=== PATIENT | male | born 1935 | race Caucasian/White ===

== ENCOUNTER → 2016-10-20 | Outpatient (CLI) | payer OTHER, MEDICARE ==
--- NOTE | 2016-10-20 19:48 | DX ---
Sacroiliac joints - 3 views dated October 20, 2016 Indication: Chronic right sacroiliac joint pain. Comparison: CT of the abdomen and pelvis dated September 12, 2016 and sacroiliac views from April 04. 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 No left-sided ankylosis. Minimal productive arthropath y of the left sacroiliac joint is unchanged. Minimal degenerative arthropathy of the pubic symphysis and exuberant osteophytes at the lumbosacral junction are unchanged. Impression: 1. 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 2. No fracture or bone lesion.
== END ==
LOC: CIMAGING 11:09
PROVIDERS: ATTEND Family Medicine
DX: M46.1 Sacroiliitis, not elsewhere classified (principal)
CPT/HCPCS: 72200-PO

== ENCOUNTER 2017-02-24 16:02 | Observation (INO) | payer OTHER, MEDICARE ==
[2017-02-24] MEDS ORDERED: NITROGLYCERIN 0.4 MG BTL SL PRN (16:09)
[2017-02-24] MEDS ORDERED: ASPIRIN 81 MG CHEWABLE TAB PO ONE (16:09)
[2017-02-24] MEDS ORDERED: NS 1,000 ML IV ONE (16:09)
--- NOTE | 2017-02-24 16:09 | EDPHY ---
H & P Stated Complaint: L cp pain, dizzy, L arm pain since this am HPI/ROS: HPI CHIEF COMPLAINT: Chest pain HISTORY OF PRESENT ILLNESS: This patient very pleasant 82-year-old male significant past medical history for coronary artery disease with a stent, diabetes, AFib, pacemaker, COPD with an oxygen requirement of 3 L around the clock, CPAP at night, presents emergency room with left-sided chest discomfort that radiates down his left arm. Patient tells me this is described as a pressure in dull ache left anterior chest radiates down the left arm. This started around 10 this morning it has been persistent all day was unable to get comfortable unable to sleep decided come to the emergency room. He also endorses shortness of breath. Denies pleuritic pain. Denies focal weakness numbness or tingling. Denies nausea. Denies diaphoresis. Past Medical History: Coronary artery disease with stent, diabetes, AFib, pacemaker, COPD with 3 L nasal cannula 24 hours day CPAP at night Past Surgical History: PTCA cardiac stent, abdominal stent Social History: Denies daily use drugs alcohol tobacco products Family History: Noncontributory ROS REVIEW OF SYSTEMS: A comprehensive 10 point review of systems is otherwise negative aside from elements mentioned in the history of present illness. Exam Constitutional appears well nontoxic, triage nursing summary reviewed, vital signs reviewed, awake/alert. Eyes normal conjunctivae and sclera, EOMI, PERRLA. HENT normal inspection, atraumatic, moist mucus membranes, no epistaxis, neck supple/ no meningismus, no raccoon eyes. Respiratory clear to auscultation bilaterally, normal breath sounds, no respiratory distress, no wheezing. Cardiovascular left chest wall: Pacer site present, minimal redness, no fluctuance no abscess. rate normal, regular rhythm, no murmur, no edema, distal pulses normal. Gastrointestinal soft, non-tender, no rebound, no guarding, normal bowel sounds, no distension, no pulsatile mass. Genitourinary no CVA tenderness. Musculoskeletal no midline vertebral tenderness, full range of motion, no calf swelling, no tenderness of extremities, no meningismus, good pulses, neurovascularly intact. Skin pink, warm, & dry, no rash, skin atraumatic. Neurologic awake, alert and oriented x 3, AAOx3, moves all 4 extremities equally, motor intact, sensory intact, CN II-XII intact, normal cerebellar, normal vision, normal speech. Psychiatric normal mood/affect. Heme/Lymph/Immune no lymphadenopathy. Differential diagnosis includes but is not limited to: ACS, atypical chest pain , pneumothorax, pneumonia, pulmonary embolism, aortic dissection, congestive heart failure, tumor, musculoskeletal pain, esophageal pain, GERD, peptic ulcer disease, pancreatitis Medical Decision Making: Plan for this patient IV establishment full cardiac rehab nurse, EKG to rule out acute coronary syndrome, chest x-ray, full-dose aspirin , nitroglycerin to see if this improves his chest discomfort, check D-dimer, check troponin. Close observation re-evaluation. Re-evaluation: EKG interpretation by me on record in [employer] Interactive system. Impression time of EKG 1614: VENTRICULARLY PACED RHYTHM RATE OF 70. When I compare this patient's EKG to old EKG dated 12/20/2014 unchanged in appearance. Ventricularly paced. 1625: states the patient is taking Keflex for a left chest pacer chest wall site infection. 1715: Patient is chest pain-free after nitroglycerin and morphine. The nitroglycerin did improve his chest discomfort. EKG is a ventricularly paced rhythm otherwise unremarkable. Negative troponin. Chest x-ray shows mild pulmonary edema mild CHF. Patient be admitted to the hospitalist service for further evaluation and cardiac rule out. Dr. Nelson has accepted. Patient is hemodynamically stable no acute distress resting comfortably at this time. Source: Patient - Personal History Current Tetanus/Diphtheria Vaccine: Unsure Current Tetanus Diphtheria and Acellular Pertussis (TDAP): Unsure Tetanus Vaccine Date: 2009 - Medical/Surgical History Hx Asthma: No Hx Chronic Respiratory Disease: No Hx Diabetes: Yes Hx Cardiac Disease: No Hx Renal Disease: No Hx Cirrhosis: No Hx Alcoholism: No Hx HIV/AIDS: No Hx Splenectomy or Spleen Trauma: No Other PMH: PMH:CAD,AFIB,HTN,PACEMAKER, Sleep apnea. PSH: PACER,BACK,EYE,ORTHO, APPY - Social History Smoking Status: Former smoker Constitutional: Initial Vital Signs Temperature (C) 37.0 C 02/24/17 16:05 Heart Rate 75 02/24/17 16:05 Respiratory Rate 20 02/24/17 16:05 Blood Pressure 136/76 H 02/24/17 16:05 O2 Sat (%) 98 02/24/17 16:05 O2 Delivery Mode Nasal Cannula O2 (L/minute) 4 Allergies/Adverse Reactions: tetracycline [Tetracycline] Allergy (Intermediate, Verified 09/12/16 17:59) Hives Medical Decision Making - Diagnostics Imaging Results: Imaging Impressions Chest X-Ray 02/24/17 16:09 Impression: 1. Suspect low-grade congestive failure without pulmonary edema. 2. Basilar atelectasis is seen. 3. Peribronchial cuffing may reflect airways disease. - Data Points Laboratory Results: Laboratory Results 02/24/17 16:22 02/24/17 16:22 02/24/17 02/24/17 02/24/17 16:22 16:22 16:22 WBC 5.02 10^3/uL 10^3/uL (3.80-9.50) RBC 4.26 10^6/uL L 10^6/uL (4.40-6.38) Hgb 13.4 g/dL L g/dL (13.7-17.5) Hct 40.1 % % (40.0-51.0) MCV 94.1 fL fL (81.5-99.8) MCH 31.5 pg pg (27.9-34.1) MCHC 33.4 g/dL g/dL (32.4-36.7) RDW 13.2 % % (11.5-15.2) Plt Count 213 10^3/uL 10^3/uL (150-400) MPV 10.2 fL fL (8.7-11.7) Neut % (Auto) 58.1 % % (39.3-74.2) Lymph % (Auto) 32.3 % % (15.0-45.0) [place] % (Auto) 6.8 % % (4.5-13.0) Eos % (Auto) 2.4 % % (0.6-7.6) Baso % (Auto) 0.2 % L % (0.3-1.7) Nucleat RBC Rel Count 0.0 % % (0.0-0.2) Absolute Neuts (auto) 2.92 10^3/uL 10^3/uL (1.70-6.50) Absolute Lymphs (auto) 1.62 10^3/uL 10^3/uL (1.00-3.00) Absolute Monos (auto) 0.34 10^3/uL 10^3/uL (0.30-0.80) Absolute Eos (auto) 0.12 10^3/uL 10^3/uL (0.03-0.40) Absolute Basos (auto) 0.01 10^3/uL L 10^3/uL (0.02-0.10) Absolute Nucleated RBC 0.00 10^3/uL 10^3/uL (0-0.01) Immature Gran % 0.2 % % (0.0-1.1) Immature Gran # 0.01 10^3/uL 10^3/uL (0.00-0.10) PT 22.7 SEC H SEC (12.0-15.0) INR 1.99 H (0.83-1.16) APTT 26.9 SEC SEC (23.0-38.0) D-Dimer 0.32 ug/mLFEU ug/mLFEU (0.00-0.50) Sodium 134 mEq/L mEq/L (134-144) Potassium 4.7 mEq/L mEq/L (3.5-5.2) Chloride 105 mEq/L mEq/L (97-110) Carbon Dioxide 21 mEq/l L mEq/l (22-31) Anion Gap 8 mEq/L mEq/L (8-16) BUN 16 mg/dL mg/dL (7-23) Creatinine 0.6 mg/dL L mg/dL (0.7-1.3) Estimated GFR > 60 Glucose 129 mg/dL H mg/dL (70-100) Calcium 10.5 mg/dL H mg/dL (8.5-10.4) Magnesium 1.6 mg/dL mg/dL (1.6-2.3) Total Bilirubin 0.6 mg/dL mg/dL (0.1-1.4) Conjugated Bilirubin 0.4 mg/dL mg/dL (0.0-0.5) Unconjugated Bilirubin 0.2 mg/dL mg/dL (0.0-1.1) AST 30 IU/L IU/L (17-59) ALT 32 IU/L IU/L (21-72) Alkaline Phosphatase 89 IU/L IU/L (38-126) Creatine Kinase 141 IU/L IU/L (0-224) CK-MB (CK-2) Fraction 3.78 ng/mL H ng/mL (0-3.19) CK-MB (CK-2) % 2.7 % % (0.0-4.0) Creatine Kinase Interp NEGATIVE (NEGATIVE) Troponin I < 0.012 ng/mL ng/mL (0-0.034) NT-Pro-B Natriuret Pep 649 pg/mL H pg/mL (0-450) Total Protein 6.8 g/dL g/dL (6.3-8.2) Albumin 3.7 g/dL g/dL (3.5-5.0) Lipase 24.0 IU/L IU/L (23-300) Medications Given: Discontinued Medications Aspirin (Aspirin) 324 mg PO EDNOW ONE Stop: 02/24/17 16:10 Last Admin: 02/24/17 16:24 Dose: 324 mg Sodium Chloride (Ns) 1,000 mls @ 0 mls/hr IV ONCE ONE; Wide Open PRN Reason: Protocol Stop: 02/24/17 16:10 Last Admin: 02/24/17 16:27 Dose: 1,000 mls Nitroglycerin (Nitrostat) 0.4 mg SL EDNOW ONE Stop: 02/24/17 16:25 Last Admin: 02/24/17 16:27 Dose: 0.4 mg Departure - Departure Disposition: [facility] Inpatient Acute Clinical Impression: Chest pain Condition: Good Referrals: Pa Issa MD [Primary Care Provider] - As per Instructions
--- NOTE | 2017-02-24 16:17 | CPEKG ---
Heart Rate: 70 RR Interval: 857 QRSD Interval: 164 QT Interval: 436 QTC Interval: 471 QRS [place]: -88 T Wave [place]: 85 EKG Severity - ABNORMAL ECG - EKG Impression: AFIB/FLUTTER AND VENTRICULAR-PACED RHYTHM Electronically Signed By: Espinoza Howell 24-Feb-2017 22:05:45
[2017-02-24] MEDS ORDERED: NITROGLYCERIN 0.4 MG BTL SL ONE (16:24)
[2017-02-24 16:28] LABS: % IMMATURE GRANULYOCYTES 0.2 % (0.0-1.1); ABSOLUTE IMMATURE GRANULOCYTES 0.01 10^3/uL (0.00-0.10); ADD DIFF? NO; ADD MORPH? NO; ADD SCAN? NO; ATYPICAL LYMPHOCYTE FLAG 10 (0-99); FRAGMENT RBC FLAG 0 (0-99); HEMATOCRIT 40.1 % (40.0-51.0); HEMOGLOBIN 13.4 g/dL (13.7-17.5); LEFT SHIFT FLG 0 (0-99); LIPEMIA HEMOLYSIS FLAG 80 (0-99); MEAN CELL HEMOGLOBIN 31.5 pg (27.9-34.1); MEAN CELL HEMOGLOBIN CONCENTR. 33.4 g/dL (32.4-36.7); MEAN CELL VOLUME 94.1 fL (81.5-99.8); MEAN PLATELET VOLUME 10.2 fL (8.7-11.7); PLATELET CLUMPS FLAG 10 (0-99); PLATELET COUNT 213 10^3/uL (150-400); RED BLOOD CELL COUNT 4.26 10^6/uL (4.40-6.38); RED CELL DISTRIBUTION WIDTH 13.2 % (11.5-15.2)
[2017-02-24 16:39] LABS: INR 1.99 (0.83-1.16); PROTIME(PATIENT) 22.7 SEC (12.0-15.0)
[2017-02-24 16:40] LABS: APTT 26.9 SEC (23.0-38.0)
[2017-02-24 16:43] LABS: ALANINE AMINOTRANSFERASE 32 IU/L (21-72); ALBUMIN 3.7 g/dL (3.5-5.0); ALKALINE PHOSPHATASE 89 IU/L (38-126); ANION GAP 8 mEq/L (8-16); ASPARTATE AMINOTRANSFERASE 30 IU/L (17-59); BILIRUBIN,TOTAL 0.6 mg/dL (0.1-1.4); BILIRUBIN-CONJUGATED 0.4 mg/dL (0.0-0.5); BILIRUBIN-UNCONJUGATED 0.2 mg/dL (0.0-1.1); CALCIUM 10.5 mg/dL (8.5-10.4); CARBON DIOXIDE 21 mEq/l (22-31); CHLORIDE 105 mEq/L (97-110); CREATININE 0.6 mg/dL (0.7-1.3); GLOMERULAR FILTRATION RATE > 60; GLUCOSE 129 mg/dL (70-100); MAGNESIUM 1.6 mg/dL (1.6-2.3); POTASSIUM 4.7 mEq/L (3.5-5.2); SODIUM 134 mEq/L (134-144); TOTAL PROTEIN 6.8 g/dL (6.3-8.2)
[2017-02-24] MEDS ORDERED: ONDANSETRON 4 MG/2 ML VIAL IVP ONE (16:49)
[2017-02-24 16:55] LABS: TROPONIN I < 0.012 ng/mL (0-0.034)
[2017-02-24 17:00] LABS: CK-MB INTERPRETATION NEGATIVE (NEGATIVE); CREATINE KINASE-MB FRACTION 3.78 ng/mL (0-3.19)
[2017-02-24] MEDS ORDERED: WARFARIN SODIUM 5 MG TAB PO SCH (18:30)
[2017-02-24] MEDS ORDERED: ONDANSETRON DISINTEGRATING 4 MG TAB PO PRN (18:35)
[2017-02-24] MEDS ORDERED: ACETAMINOPHEN 325 MG TAB PO PRN (18:35)
[2017-02-24] MEDS ORDERED: ONDANSETRON 4 MG/2 ML VIAL IVP PRN (18:35)
--- NOTE | 2017-02-24 19:38 | GHP ---
[f rep st] HISTORY AND PHYSICAL DATE OF ADMISSION: 02/24/2017 HISTORY OF PRESENT ILLNESS: The patient is an 82-year-old gentleman with a history of atrial fibril lation, coronary disease, low back pain, diabetes. He presents with chest pain. He had a recent pa cemaker generator change about a month ago with a subsequent soft tissue infection, for which he has been on Keflex. This morning, he developed pain under his left breast, and his left arm ached. He was not diaphoretic. He was short of breath. He lay down. The pain largely resolved. He spent m uch of the day in bed. He does not really exert himself very often, so he has no classic exertional symptoms. He has chronic lower extremity edema, which he believes is unchanged. He has COPD, for which he wears oxygen, and that is unchanged. He is not breathless. He does not have sputum, hemop tysis, or weight gain. He does take warfarin for atrial fibrillation. He currently has a therapeut ic INR. REVIEW OF SYSTEMS: Complete 10-point review of systems conducted, negative except as noted in the H PI. PAST MEDICAL HISTORY: 1. Coronary artery disease. He has had stents in the past. He had a stress test here in March, showing no evidence of ischemia or infarction. 2. Multiple low back surgeries. 3. Pacemaker placement. 4. Recent skin infection. 5. Hypertension. 6. Type 2 diabetes. 7. Reflux. 8. Esophageal dysmotility. PAST SURGICAL HISTORY: He has had 5 eye surgeries and an appendectomy. ALLERGIES: Tetracycline. HOME MEDICATIONS: Glargine 25 at night, metformin, aspirin, Keflex, vitamin D3, Plavix, B12, digoxi n, duloxetine, gabapentin, lispro, levothyroxine, methadone, metoprolol, pantoprazole, tamsulosin, w arfarin. 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 He lives in [facility] or [facility]. Quit smoking remotely. Minimal alcohol. FAMILY HISTORY: Parents . PHYSICAL EXAMINATION: VITAL SIGNS: Temp 36.4, blood pressure 113/57, pulse 73, breathing 14 times a minute, 96% on 4 L. GENERAL: No acute distress. HEENT: Sclerae anicteric. Oropharynx clear. Mucous membranes moist. NECK: Supple, without lymphadenopathy or JVD. LUNGS: Clear to auscultati on bilaterally. HEART: S1, S2. ABDOMEN: Soft, nontender, nondistended. CHEST: His left chest s hows some erythema without fluctuance or lymphangitic spread. There is no axillary lymphadenopathy. LOWER EXTREMITIES: 1+ edema bilaterally. Calves are nontender. SKIN: Without rash. NEUROLOGIC : Nonfocal. LABS: White count 5, hematocrit 40, platelets 213,000. INR is 1.99. Sodium 134, potassium 4.7, ch loride 105, bicarb 21, BUN 8, creatinine 0.6, glucose 129. Calcium is 10.5, slightly high. LFTs no rmal. Troponin less than 0.012. BNP is 649. Chest x-ray, interpreted by me, shows a pacer in place. No acute cardiopulmonary disease. EKG, interpreted by me, shows paced rhythm. I have discussed the case with Dr. Espinoza Howell in the emergency department. ASSESSMENT AND PLAN: This is a pleasant 82-year-old gentleman with coronary disease, recent generat or change with subsequent infection, who presents with chest pain. 1. Chest pain. His EKG has been uninterpretable. He has a negative cardiac enzyme. His story meza s not sound classic for angina, but his risk factors and the presence of coronary disease are noted. I will cycle troponins, follow him on telemetry, check an EKG in the morning. He is on appropriat e medical management, including aspirin, statin, beta gustavo, and dual antiplatelet therapy. I won hilda if his pacemaker site is having a role in this. I will perform ultrasound. 2. Pacer site infection. This looks pretty good, actually. His sole leather cutting machine operator is someone at [facility]. It used to be Kyree Galloway. He really cannot name his sole leather cutting machine operator. He has seen a PA at [facility]. Uncertain who that is. I will check an ultrasound and continue his Keflex. 3. Diabetes. Continue his medication. 4. History of neuropathy. The patient describes burning on the bottom of his feet. It sounds an a wful lot like a diabetic neuropathy. I discussed starting Neurontin with him, and he does have some interest. I will start low-dose Neurontin and titrate up. 5. Prophylaxis. Therapeutically anticoagulated. 6. Neurontin addendum: The patient is already on Neurontin. 7. Disposition: Observation status. 8. Addendum to chest pain: Pulmonary embolism considered. Therapeutic INR on warfarin. /[id number]/MODL
[2017-02-24] MEDS: CEPHALEXIN 500 MG CAP PO SCH (20:49)
[2017-02-24] MEDS: METOPROLOL SUCCINATE XR 25 MG TAB PO SCH (20:49)
[2017-02-24] MEDS: GABAPENTIN 300 MG CAP PO SCH (20:50)
[2017-02-24] MEDS: METHADONE HCL 5 MG TAB PO SCH (20:50)
[2017-02-24] MEDS: PANTOPRAZOLE SODIUM 40 MG TAB PO SCH (20:50)
[2017-02-24] MEDS ORDERED: INSULIN GLARGINE 100 UNITS/ML SYRINGE SC SCH (21:00)
[2017-02-25] MEDS ORDERED: LEVOTHYROXINE 150 MCG TAB PO SCH (06:00)
[2017-02-25] MEDS: CEPHALEXIN 500 MG CAP PO SCH ×3 (06:02→16:02)
[2017-02-25 07:53] VITALS: RESP 19
[2017-02-25] MEDS ORDERED: ASPIRIN EC 81 MG TAB PO SCH (09:00)
[2017-02-25] MEDS ORDERED: DULoxetine 30 MG CAP PO SCH (09:00)
[2017-02-25] MEDS ORDERED: DIGOXIN 125 MCG TAB PO SCH (09:00)
[2017-02-25] MEDS ORDERED: CHOLECALCIFEROL VIT D3 1,000 UNITS TAB PO SCH (09:00)
[2017-02-25] MEDS ORDERED: TAMSULOSIN HCL 0.4 MG CAP PO SCH (09:00)
[2017-02-25] MEDS ORDERED: CLOPIDOGREL BISULFATE 75 MG TAB PO SCH (09:00)
[2017-02-25] MEDS: PANTOPRAZOLE SODIUM 40 MG TAB PO SCH (09:41)
[2017-02-25] MEDS: METHADONE HCL 5 MG TAB PO SCH (09:42)
[2017-02-25] MEDS: METOPROLOL SUCCINATE XR 25 MG TAB PO SCH (09:42)
[2017-02-25] MEDS: GABAPENTIN 300 MG CAP PO SCH ×2 (09:42→11:56)
[2017-02-25] MEDS ORDERED: REGADENOSON 0.4 MG/5 ML SYR IVP ONE (10:12)
--- NOTE | 2017-02-25 11:15 | CPR ---
[f rep st] NONINVASIVE CARDIAC PROCEDURE REPORT PROCEDURE PERFORMED: Lexiscan injection and Lexiscan MPI study. INDICATION FOR PROCEDURE: Chest pain with paced rhythm. PRE: After obtaining informed consent, ensuring the patient's n.p.o. status of caffeine for greater than 12 hours, the patient was placed on 12-lead electrocardiogram. Initial EKG appears to have underlying rhythm of atrial fibrillation with ventricular paced beats. No ectopy, no significant pauses. Patient denies any chest pain, shortness of breath, or symptoms suggestive of ischemia. Initial blood pressure 120/76, saturation 91%, on 2 L nasal cannula. INJECTION: Patient was given Lexiscan slow IV push, followed by nuclear isotope. The patient reported some mild shortness of breath with injection. No significant EKG changes. Blood pressure remained stable. Symptoms were self limited. The patient was given caffeinated beverage. Reporting symptoms soon subsided. After 5 minutes, he was asymptomatic. Vital signs remained stable. No significant EKG changes. IMPRESSION: 82-year-old male admitted for chest pressure with underlying ventricular paced rhythm, being evaluated for cardiac ischemia. Patient did report mild shortness of breath post the Lexiscan, which resolved within 5 minutes and caffeinated beverage, post injection. Vital signs remained stable. No arrhythmias. No significant changes in EKG. The patient will finish stress MPI imaging in nuclear medicine at this time. /[id number]/MODL MTDD
[2017-02-25 11:53] VITALS: BP 155/88; PULSE 63; TEMP 98; O2SAT 96
[2017-02-25] MEDS: INSULIN LISPRO 100 UNIT/ML SC SCH ×2 (11:55→12:04)
--- NOTE | 2017-02-25 14:23 | PDDCSUM ---
Discharge Summary Discharge Summary: Dates of service 02/24-02/25/17 Discharge dx: # chest pain # recent PPM placement with post op infection # cad # DM # a fib # Dm related neuropathy # nocturia # daytime somnolence Consultations: none Procedures performed: nuc stress test, chest us Hospital course by problem # chest pain: with hx of CAD, w/u negative including nuc stress test, trops neg x 3, ech without ischemic changes, pain has resolved and not recurred. Perhaps it was msk versus GI related. f/u with cards as scheduled this week # ppm with post op wound infection: being treated with keflex and appears to be improving, small area of redness without purulence or fluctuance, chest ct w/o abscess. complete course of abx and f/u as scheduled. # CAD: as above, continue op meds # a fib: ecg personally reviewed and notable for afib/flutter with v-paced rhythm, continue op meds and ac with warfarin # dm with diabetic neuropathy--continue op meds, glucose well controlled, holding metormin until the 16th given stress today, continue neurontin # nocturia: sounds as if he is getting up 5-6 times at night to urinate, leading him to be very somnolent during the day, recommend he f/u with urology, already on tamsulosin # daytime somnolence: is compliant with cpap, issue as above likely contributing # denise: continue cpap Dc home f/u pcp. urology. cardiology. > 35 min spent in dc of patient more than half in face to face counseling of patient and his regarding f/u care plans
[2017-02-25] MEDS ORDERED: WARFARIN SODIUM 7.5 MG TAB PO SCH (16:00)
[2017-02-26] MEDS ORDERED: WARFARIN SODIUM 5 MG TAB PO SCH (16:00)
[2017-03-12] MEDS ORDERED: CYANO/VITAMIN B12 1000 MCG/ML VIAL IM SCH (18:30)
== END 2017-02-25 16:11 | disposition home or self-care (01) ==
LOC: INTOOBSV 17:15 → F2W 18:02
PROVIDERS: ADMIT Internal Medicine; ATTEND Internal Medicine
DX: R07.9 Chest pain, unspecified (principal); I25.10 Atherosclerotic heart disease of native coronary artery without angina pectoris; E11.40 Type 2 diabetes mellitus with diabetic neuropathy, unspecified; T81.4XXD Infection following a procedure, subsequent encounter; Y71.2 Prosthetic and other implants, materials and accessory cardiovascular devices associated with adverse incidents; J44.9 Chronic obstructive pulmonary disease, unspecified; I48.91 Unspecified atrial fibrillation; R35.1 Nocturia; G47.33 Obstructive sleep apnea (adult) (pediatric); Z95.0 Presence of cardiac pacemaker; Z95.5 Presence of coronary angioplasty implant and graft
CPT/HCPCS: 71010; 76604; 78452; 93005; 93017; 96361; 96374; 96375; 97161; 99285; A9500; G0378; G8978; G8979; G8980; J1815; J2405; J2785

== ENCOUNTER 2017-08-02 21:10 | Inpatient (IN) | payer OTHER, MEDICARE ==
--- NOTE | 2017-08-02 21:22 | CPEKG ---
Heart Rate: 80 RR Interval: 750 P-R Interval: 140 QRSD Interval: 192 QT Interval: 444 QTC Interval: 513 P [place]: -78 QRS [place]: 268 T Wave [place]: 89 EKG Severity - ABNORMAL ECG - EKG Impression: VENTRICULAR-PACED COMPLEXES EKG Impression: NONSPECIFIC IVCD WITH LAD Electronically Signed By: Shanta Jarvis 02-Aug-2017 22:35:19
[2017-08-02 21:24] LABS: % IMMATURE GRANULYOCYTES 0.2 % (0.0-1.1); ABSOLUTE IMMATURE GRANULOCYTES 0.01 10^3/uL (0.00-0.10); ADD DIFF? NO; ADD MORPH? NO; ADD SCAN? NO; ATYPICAL LYMPHOCYTE FLAG 0 (0-99); FRAGMENT RBC FLAG 0 (0-99); HEMATOCRIT 42.8 % (40.0-51.0); HEMOGLOBIN 14.8 g/dL (13.7-17.5); LEFT SHIFT FLG 0 (0-99); LIPEMIA HEMOLYSIS FLAG 90 (0-99); MEAN CELL HEMOGLOBIN 32.8 pg (27.9-34.1); MEAN CELL HEMOGLOBIN CONCENTR. 34.6 g/dL (32.4-36.7); MEAN CELL VOLUME 94.9 fL (81.5-99.8); MEAN PLATELET VOLUME 10.1 fL (8.7-11.7); PLATELET CLUMPS FLAG 10 (0-99); PLATELET COUNT 202 10^3/uL (150-400); RED BLOOD CELL COUNT 4.51 10^6/uL (4.40-6.38); RED CELL DISTRIBUTION WIDTH 13.2 % (11.5-15.2)
--- NOTE | 2017-08-02 21:31 | EDPHY ---
H & P HPI/ROS: CHIEF COMPLAINT: Chest pain HISTORY OF PRESENT ILLNESS: Patient is an 82-year-old male with a history of coronary artery disease with previous stent placement in the beginning of 2015 who presents emergency department with chest pain starting at 4:00 p.m. The patient was at rest when he developed chest pain. Is central. It does not radiate. It was initially 8 out 10 per paramedics. They treated him with nitroglycerin with no relief. Patient was given aspirin EN route. Patient states he continues to have pain but is mild. He had mild shortness of breath. No cough. No fevers or chills. No nausea, vomiting or diaphoresis. No leg pain. REVIEW OF SYSTEMS: My complete review of systems is negative except as mentioned in the HPI. Past Medical/Surgical History: Includes coronary artery disease Smoking Status: Former smoker Physical Exam: Vitals noted Constitutional: Initial Vital Signs Temperature (C) 36.8 C 08/02/17 21:17 Heart Rate 72 08/02/17 21: Respiratory Rate 18 08/02/17 21:17 Blood Pressure 132/75 H 08/02/17 21:17 O2 Sat (%) 99 08/02/17 21:17 O2 Delivery Mode Nasal Cannula O2 (L/minute) 3 Allergies/Adverse Reactions: tetracycline [Tetracycline] Allergy (Intermediate, Verified 09/12/16 17:59) Hives Home Medications: Medication Instructions Recorded Aspirin EC [Aspirin EC 81 mg (*)] 81 mg PO DAILY 02/24/17 Cephalexin [Keflex (*)] 500 mg PO QID 02/24/17 Cholecalciferol Vit D3 [Vitamin D3 4,000 units PO DAILY 02/24/17 (*)] Clopidogrel Bisulfate [Plavix (*)] 75 mg PO DAILY 02/24/17 Cyanocobalamin [Vitamin B12 1,000 mcg IM Q30D 02/24/17 1000MCG/ML (*)] DULoxetine [Cymbalta 30 MG (*)] 30 mg PO DAILY 02/24/17 Digoxin [Lanoxin 125 mcg (RX)] 125 mcg PO DAILY 02/24/17 Gabapentin [Neurontin 300 MG (*)] 300 mg PO TID@09,12,21 02/24/17 Insulin Glargine [Lantus 100 25 units SC HS 02/24/17 UNITS/ML (*)] Insulin Lispro [Humalog] 15 unit SQ TIDMEAL 02/24/17 Levothyroxine [Synthroid 150 mcg 150 mcg PO DAILY06 02/24/17 (*)] Methadone HCl [Methadone 5 mg (*)] 5 mg PO BID 02/24/17 Metoprolol Succinate Xr [Toprol Xl 25 mg PO BID 02/24/17 25 mg (*)] Pantoprazole Sodium [Protonix 40mg 40 mg PO BID 02/24/17 (*)] Tamsulosin HCl [Flomax 0.4 MG (*)] 0.4 mg PO DAILY 02/24/17 Warfarin Sodium [Coumadin 5MG (*)] 5 mg PO SUTUTH 02/24/17 Warfarin Sodium [Coumadin 7.5MG 7.5 mg PO MOWEFRSA 02/24/17 (*)] metFORMIN HCL [Metformin HCl] 500 mg PO BID 02/24/17 Medical Decision Making - Diagnostics Imaging Results: Imaging Impressions Chest X-Ray 08/02/17 21:12 Impression: Compensated CHF. ED Course/Re-evaluation: In the emergency department I met EMS on arrival. The patient was cardiac alert. I reviewed their EKG. EKG was obtained. This showed ventricularly paced rhythm at 73. I requested an old EKG. Laboratory studies were sent. Chest x-ray was ordered. I discussed the case with Dr. Robledo. He reviewed the EKG. He recommend the patient have laboratory studies drawn. An old EKG was obtained. The patient was noted to have V paced rhythm at 70. EKGs appear similar. I discussed the findings with the patient. I answered all his questions. Chest x-ray: I reviewed the images at the bedside. Patient has cardiomegaly. No pneumothorax on initial reading. CBC and chemistry are unremarkable. Troponin is negative at 0.012. BNP is pending. Chest x-ray per report: Compensated CHF 2217: I paged the hospitalist service. Discussed the case with Dr. Singh. Patient will be admitted for further care. I discussed the plan with the patient answered all his questions. Differential Diagnosis: My differential includes but is not limited to ACS, acute IA, dissection, aneurysm, pulmonary embolus, CHF, pleurisy, reflux, peptic ulcer disease - Data Points Laboratory Results: Laboratory Results 08/02/17 21:00 08/02/17 21:00 08/02/17 08/02/17 08/02/17 21:45 21:00 21:00 WBC RBC Hgb Hct MCV MCH MCHC RDW Plt Count MPV Neut % (Auto) Lymph % (Auto) [place] % (Auto) Eos % (Auto) Baso % (Auto) Nucleat RBC Rel Count Absolute Neuts (auto) Absolute Lymphs (auto) Absolute Monos (auto) Absolute Eos (auto) Absolute Basos (auto) Absolute Nucleated RBC Immature Gran % Immature Gran # PT 22.8 SEC H SEC REJ (12.0-15.0) INR 2.00 H REJ (0.83-1.16) APTT 34.0 SEC SEC REJ (23.0-38.0) Sodium 136 mEq/L mEq/L (134-144) Potassium 4.6 mEq/L mEq/L (3.5-5.2) Chloride 101 mEq/L mEq/L (97-110) Carbon Dioxide 23 mEq/l mEq/l (22-31) Anion Gap 12 mEq/L mEq/L (8-16) BUN 16 mg/dL mg/dL (7-23) Creatinine 0.8 mg/dL mg/dL (0.7-1.3) Estimated GFR > 60 Glucose 259 mg/dL H mg/dL (70-100) Calcium 11.0 mg/dL H mg/dL (8.5-10.4) Phosphorus 2.4 mg/dL L mg/dL (2.5-4.5) Troponin I < 0.012 ng/mL ng/mL (0.000-0.034) NT-Pro-B Natriuret Pep 470 pg/mL H pg/mL (0-450) 08/02/17 21:00 WBC 4.74 10^3/uL 10^3/uL (3.80-9.50) RBC 4.51 10^6/uL 10^6/uL (4.40-6.38) Hgb 14.8 g/dL g/dL (13.7-17.5) Hct 42.8 % % (40.0-51.0) MCV 94.9 fL fL (81.5-99.8) MCH 32.8 pg pg (27.9-34.1) MCHC 34.6 g/dL g/dL (32.4-36.7) RDW 13.2 % % (11.5-15.2) Plt Count 202 10^3/uL 10^3/uL (150-400) MPV 10.1 fL fL (8.7-11.7) Neut % (Auto) 54.7 % % (39.3-74.2) Lymph % (Auto) 35.2 % % (15.0-45.0) [place] % (Auto) 7.0 % % (4.5-13.0) Eos % (Auto) 2.7 % % (0.6-7.6) Baso % (Auto) 0.2 % L % (0.3-1.7) Nucleat RBC Rel Count 0.0 % % (0.0-0.2) Absolute Neuts (auto) 2.59 10^3/uL 10^3/uL (1.70-6.50) Absolute Lymphs (auto) 1.67 10^3/uL 10^3/uL (1.00-3.00) Absolute Monos (auto) 0.33 10^3/uL 10^3/uL (0.30-0.80) Absolute Eos (auto) 0.13 10^3/uL 10^3/uL (0.03-0.40) Absolute Basos (auto) 0.01 10^3/uL L 10^3/uL (0.02-0.10) Absolute Nucleated RBC 0.00 10^3/uL 10^3/uL (0-0.01) Immature Gran % 0.2 % % (0.0-1.1) Immature Gran # 0.01 10^3/uL 10^3/uL (0.00-0.10) PT INR APTT Sodium Potassium Chloride Carbon Dioxide Anion Gap BUN Creatinine Estimated GFR Glucose Calcium Phosphorus Troponin I NT-Pro-B Natriuret Pep Departure - Departure Disposition: [facility] Inpatient Acute Clinical Impression: Chest pain Chest pain Qualifiers: Chest pain type: unspecified Qualified Code(s): R07.9 - Chest pain, unspecified Condition: Good Referrals: Pa Issa MD [Primary Care Provider] - As per Instructions
[2017-08-02] MEDS ORDERED: IOPAMIDOL (ISOVUE-370) 150 ML BTL IV ONE (21:32)
[2017-08-02] MEDS ORDERED: LIDOCAINE 1% 300 MG/30 ML SDV ONE (21:32)
[2017-08-02] MEDS ORDERED: MIDAZOLAM 2 MG/2 ML VIAL ONE (21:32)
[2017-08-02] MEDS ORDERED: fentaNYL 100 MCG/2 ML INJ ONE (21:32)
[2017-08-02 21:40] LABS: ANION GAP 12 mEq/L (8-16); CARBON DIOXIDE 23 mEq/l (22-31); CHLORIDE 101 mEq/L (97-110); CREATININE 0.8 mg/dL (0.7-1.3); GLOMERULAR FILTRATION RATE > 60; GLUCOSE 259 mg/dL (70-100); POTASSIUM 4.6 mEq/L (3.5-5.2); SODIUM 136 mEq/L (134-144)
[2017-08-02 21:51] LABS: TROPONIN I < 0.012 ng/mL (0.000-0.034)
[2017-08-02 22:08] LABS: PROTIME(PATIENT) 22.8 SEC (12.0-15.0)
[2017-08-02] MEDS ORDERED: ONDANSETRON 4 MG/2 ML VIAL IVP PRN (22:38)
[2017-08-02] MEDS ORDERED: ACETAMINOPHEN 325 MG TAB PO PRN (22:38)
[2017-08-02] MEDS ORDERED: HYDROCODONE/APAP 5/325 TAB PO PRN (22:38)
[2017-08-02] MEDS ORDERED: D50W 25 GM/50 ML VIAL IVP PRN (22:43)
[2017-08-02] MEDS ORDERED: WARFARIN SODIUM 5 MG TAB PO ONE (23:30)
[2017-08-02] MEDS ORDERED: INSULIN GLARGINE 100 UNITS/ML SYRINGE SC SCH (23:45)
--- NOTE | 2017-08-02 23:52 | PDGENHP ---
History and Physical - Chief Complaint Chest pain - History of Present Illness Source - patient provides history and appears reliable. is at bedside and supplements history. HPI - Erick is a pleasant 82 yo M with pmhx significant for CAD s/p stent 09/2015, afib s/p pacer, DM II, HTN, gerd, chronic resp failure, DO on CPAP, morbid obesity (BMI 44.9) who presents to the ED today 2-3 hours after onset of left sided chest pain. Patient reports he was sitting on the couch when he began to experience a left chest wall pain that is sharp and radiates upward to left shoulder and down arm. Patient also noted underlying pressure sensation. He notes associated increased SOB, nausea/vomiting before EMS arrived. He denies any diaphoresis, palpitations, lightheadedness. He reports chest pain feels different from [place] 2016 but worse. Patient received ASA 324mg from EMS before arrival as well as a dose of ntg which patient reports did not help at all. His pain at its worse was 7/10 and down to 5/10 after ASA and nitroglycerin. Patient also endorses today seeing a black stool. no BRBPR. patient is on coumadin for afib and inr today 2.0. pt denies any hematemesis. Patient was admitted 02/2017 for chest pain. he underwent NM stress testing. Patient is currently on ASA 81mg, plavix, bb but not on statin or ACEI/ARB. He is no longer followed by a mold design engineer as patient reports his primary mold design engineer left practice at [facility] and he has not yet re-established care. History Information - Allergies/Home Medication List Allergies/Adverse Reactions: tetracycline [Tetracycline] Allergy (Intermediate, Verified 09/12/16 17:59) Hives Home Medications: Aspirin EC [Aspirin EC 81 mg (*)] 81 mg PO DAILY 02/24/17 [Last Taken 02/24/17] Cephalexin [Keflex (*)] 500 mg PO QID 02/24/17 [Last Taken 02/24/17 2 CAPS] Cholecalciferol Vit D3 [Vitamin D3 (*)] 4,000 units PO DAILY 02/24/17 [Last Taken 02/24/17] Clopidogrel Bisulfate [Plavix (*)] 75 mg PO DAILY 02/24/17 [Last Taken 02/24/17] Cyanocobalamin [Vitamin B12 1000MCG/ML (*)] 1,000 mcg IM Q30D 02/24/17 [Last Taken 02/10/17] DULoxetine [Cymbalta 30 MG (*)] 30 mg PO DAILY 02/24/17 [Last Taken 02/24/17] Digoxin [Lanoxin 125 mcg (RX)] 125 mcg PO DAILY 02/24/17 [Last Taken 02/24/17] Gabapentin [Neurontin 300 MG (*)] 300 mg PO TID@,,02/24/17 [Last Taken 12:00 2 CAPS] Insulin Glargine [Lantus 100 UNITS/ML (*)] 25 units SC HS 02/24/17 [Last Taken 02/23/17] Insulin Lispro [Humalog] 15 unit SQ TIDMEAL 02/24/17 [Last Taken 02/24/17] Levothyroxine [Synthroid 150 mcg (*)] 150 mcg PO DAILY06 02/24/17 [Last Taken ] Methadone HCl [Methadone 5 mg (*)] 5 mg PO BID 02/24/17 [Last Taken 02/24/17 1 TAB] Metoprolol Succinate Xr [Toprol Xl 25 mg (*)] 25 mg PO BID 02/24/17 [Last Taken 02/24/17 1 TAB] Pantoprazole Sodium [Protonix 40mg (*)] 40 mg PO BID 02/24/17 [Last Taken 1 TAB] Tamsulosin HCl [Flomax 0.4 MG (*)] 0.4 mg PO DAILY 02/24/17 [Last Taken 02/24/17 ] Warfarin Sodium [Coumadin 5MG (*)] 5 mg PO SUTUTH 02/24/17 [Last Taken 02/24/17] Warfarin Sodium [Coumadin 7.5MG (*)] 7.5 mg PO MOWEFRSA 02/24/17 [Last Taken 08/30] metFORMIN HCL [Metformin HCl] 500 mg PO BID 02/24/17 [Last Taken 02/24/17 1 TAB] I have personally reviewed and updated: family history, medical history, social history, surgical history - Past Medical History Additional medical history: CAD with history of stents. atrial fib s/p pacer, hx soft tissue infection at surgical site resolved. chronic back pain. DM II. benign essential HTN. HLD. gerd. esophageal dysmotility. chronic respiratory failure on 3liters daytime, 5 liters with CPAP. DO on CPAP. left eye blindness. diabetic neuropathy bilateral feet. morbid obesity (BMI 44.9). chronic LE edema - Surgical History Additional surgical history: multiple lumbar surgeries. L eye surgery x 5. cardiac cath/stent 09/2015. appy. angio/stent "abdomen" for PVD. - Family History Additional family history: mother - DM II. father - CAD/CO age 73. patients children are all healthy - Social History Smoking Status: Former smoker (quit smoking 20 years ago.) Alcohol Use: None Drug Use: None Additional social history: Patient and lives with . COR - patient desires to be DNR/DNI. this was also reviewed with the who does not agree but respects patient's wishes. Review of Systems Review of Systems: ROS: 10pt was reviewed & negative except for what was stated in HPI & below Constitutional: Reports: other (chronic and occasional flushing/chills. ). Denies: malaise, weight loss EENMT: Reports: sore throat (chronic sore throat), other (blind left eye). Denies: blurred vision, nose congestion Gastrointestinal: Reports: vomitting, black stools, nausea, other (patient reports chronic gi upset. ). Denies: abdominal pain, diarrhea Genitourinary: Denies: dysuria, hematuria Muscolosketal: Reports: back pain (chronic), joint pain (chronic). Denies: muscle pain Skin: Reports: no symptoms. Denies: lesions, rash Neurological: Reports: headache, numbness (bilateral feet.). Denies: anxiety, depressed, seizure, tremors, weakness Hematologic/Lymphatic: Reports: no symptoms Physical Exam Physical Exam: Selected Entries 08/02/17 21:17 Blood Pressure Automatic Method Heart Rate 72 Respiratory 18 Rate O2 Sat (%) 99 Temperature (C) 36.8 C Blood Pressure 132/75 H Mean Arterial 94 Pressure (MAP) O2 (L/minute) 2 O2 Delivery Nasal Cannula Mode Temperature Oral Source Temp Pulse Resp BP Pulse Ox 36.3 C 69 20 126/69 H 98 08/02/17 23:04 08/02/17 23:04 08/02/17 23:04 08/02/17 23:04 08/02/17 23:04 O2 (L/minute) 3 Constitutional: no apparent distress, not in pain, chronically ill appearing, obese, other (NAD. pleasant morbidly obese elderly gentleman sitting up on side of bed. ) Eyes: anicteric sclera, EOMI, No PERRL (left cornea scarred/hypertrophic. pupil asymmetric. ) Ears, Nose, Mouth, Throat: moist mucous membranes, hearing normal, no oral mucosal ulcers, dry mucous membranes, No poor dentition (dentures in place. ), No hard of hearing Peripheral Pulses: 1+: dorsalis-pedis (R) (limited exam with edema), dorsalis- pedis (L) (limited exam with edema) Respiratory: no respiratory distress, no rales or rhonchi, clear to auscultation Gastrointestinal: normoactive bowel sounds, soft, non-tender abdomen, no palpable masses, other (obese. soft. NTTP. ) Genitourinary: no bladder tenderness, No goodwin in urethra Skin: warm, normal color, no rashes or abrasions, No erythema Musculoskeletal: generalized weakness, No joint tenderness Neurologic: AAOx3, CN II-XII Intact, No weakness (nothing focal. ), No facial droop Psychiatric: interacting appropriately, not anxious, not encephalopathic, No anxious, No depressed, No poor insight, No poor judgement, No poor memory Lab Data & Imaging Review 08/02/17 21:00 08/02/17 21:00 WBC 4.74 10^3/uL (3.80-9.50) 08/02/17 21:00 RBC 4.51 10^6/uL (4.40-6.38) 08/02/17 21:00 Hgb 14.8 g/dL (13.7-17.5) 08/02/17 21:00 Hct 42.8 % (40.0-51.0) 08/02/17 21:00 MCV 94.9 fL (81.5-99.8) 08/02/17 21:00 MCH 32.8 pg (27.9-34.1) 08/02/17 21:00 MCHC 34.6 g/dL (32.4-36.7) 08/02/17 21:00 RDW 13.2 % (11.5-15.2) 08/02/17 21:00 Plt Count 202 10^3/uL (150-400) 08/02/17 21:00 MPV 10.1 fL (8.7-11.7) 08/02/17 21:00 Neut % (Auto) 54.7 % (39.3-74.2) 08/02/17 21:00 Lymph % (Auto) 35.2 % (15.0-45.0) 08/02/17 21:00 [place] % (Auto) 7.0 % (4.5-13.0) 08/02/17 21:00 Eos % (Auto) 2.7 % (0.6-7.6) 08/02/17 21:00 Baso % (Auto) 0.2 % (0.3-1.7) L 08/02/17 21:00 Nucleat RBC Rel Count 0.0 % (0.0-0.2) 08/02/17 21:00 Absolute Neuts (auto) 2.59 10^3/uL (1.70-6.50) 08/02/17 21:00 Absolute Lymphs (auto) 1.67 10^3/uL (1.00-3.00) 08/02/17 21:00 Absolute Monos (auto) 0.33 10^3/uL (0.30-0.80) 08/02/17 21:00 Absolute Eos (auto) 0.13 10^3/uL (0.03-0.40) 08/02/17 21:00 Absolute Basos (auto) 0.01 10^3/uL (0.02-0.10) L 08/02/17 21:00 Absolute Nucleated RBC 0.00 10^3/uL (0-0.01) 08/02/17 21:00 Immature Gran % 0.2 % (0.0-1.1) 08/02/17 21:00 Immature Gran # 0.01 10^3/uL (0.00-0.10) 08/02/17 21:00 PT 22.8 SEC (12.0-15.0) H 08/02/17 21:45 INR 2.00 (0.83-1.16) H 08/02/17 21:45 APTT 34.0 SEC (23.0-38.0) 08/02/17 21:45 Sodium 136 mEq/L (134-144) 08/02/17 21:00 Potassium 4.6 mEq/L (3.5-5.2) 08/02/17 21:00 Chloride 101 mEq/L (97-110) 08/02/17 21:00 Carbon Dioxide 23 mEq/l (22-31) 08/02/17 21:00 Anion Gap 12 mEq/L (8-16) 08/02/17 21:00 BUN 16 mg/dL (7-23) 08/02/17 21:00 Creatinine 0.8 mg/dL (0.7-1.3) 08/02/17 21:00 Estimated GFR > 60 08/02/17 21:00 Glucose 259 mg/dL (70-100) H 08/02/17 21:00 Calcium 11.0 mg/dL (8.5-10.4) H 08/02/17 21:00 Phosphorus 2.4 mg/dL (2.5-4.5) L 08/02/17 21:00 Troponin I < 0.012 ng/mL (0.000-0.034) 08/02/17 21:00 NT-Pro-B Natriuret Pep 470 pg/mL (0-450) H 08/02/17 21:00 Imaging Review: Portable Chest, 21:20 History: Chest pain Comparison: February 24, 2017 Findings: There is chronic cardiomegaly. The pulmonary vascularity is equalized. There is no pleural effusion or pulmonary edema. A left chest wall pacer device is present with unipolar pacer lead. There is no pneumothorax mass or obvious adenopathy. Impression: Compensated CHF. Visualized and Interpreted Chest x-ray results: Yes Visualized and Interpreted EKG results: Yes Assessment & Plan Assessment: #Chest pain - ddx including angina vs reflux or esophageal spasm vs afib rvr. no evidence of pacer malfunction, no pneumonia on xray. less likely PE pt inr 2.0. patient presented to ED several hours after onset of chest pain and initial trop neg. will plan to complete serial enzymes and monitor on PCU. nitroglycerin did not help with pain will do trial of morphine. Patient with recent NM stress test 02/2017 and not likely to be beneficial repeating if patient trop rule out again 4 months out however patient hs been compliant with asa/plavix he is not on statin and patient does not explain why. #atrial fib - paced 70s. continue metoprolol, digoxin #chronic anticoagulation on coumadin - inr therapeutic. rx consult to assist with dosing. #melena - patient reports BM today mostly black with brown streaks. h/h stable at this time. patient without further events. will obtain occult stool and monitor cbc. #DM II uncontrolled with neuropathy - resume patient lantus, TIDAC dosing and hold am metformin for now. #benign essential HTN - BPs acceptable. continue metoprolol prn. #GERD - continue protonix bid. #esophageal dysmotility - continue protonix as above. pt repors chronic nausea but today had emesis related to CP. #chronic respiratory failure - continue oxygen continuously. #DO on CPAP patient brought home cpap. #morbid obesity (BMI 44.9) - mobilize. monitor fluid status. ADA diet. FEN - saline lock IV. ADA diet then npo after midnight. electrolyte replacement if needed. PPX - on coumadin. okay to hold SCDs tx inr and pt with chronic LE edema COR - DNR/DNI. discussed this with as well and although she does not agree she is respectful of patient wishes. Dispo - Admit to observation on PCU.
[2017-08-03] MEDS: GABAPENTIN 300 MG CAP PO SCH ×4 (00:08→20:01)
[2017-08-03] MEDS: METHADONE HCL 5 MG TAB PO SCH ×3 (00:13→20:01)
[2017-08-03 05:23] LABS: % IMMATURE GRANULYOCYTES 0.2 % (0.0-1.1); ABSOLUTE IMMATURE GRANULOCYTES 0.01 10^3/uL (0.00-0.10); ADD DIFF? NO; ADD MORPH? NO; ADD SCAN? NO; ATYPICAL LYMPHOCYTE FLAG 20 (0-99); FRAGMENT RBC FLAG 0 (0-99); HEMOGLOBIN 13.9 g/dL (13.7-17.5); LEFT SHIFT FLG 0 (0-99); LIPEMIA HEMOLYSIS FLAG 90 (0-99); MEAN CELL HEMOGLOBIN 32.6 pg (27.9-34.1); MEAN CELL HEMOGLOBIN CONCENTR. 33.9 g/dL (32.4-36.7); MEAN CELL VOLUME 96.2 fL (81.5-99.8); MEAN PLATELET VOLUME 10.1 fL (8.7-11.7); PLATELET CLUMPS FLAG 0 (0-99); PLATELET COUNT 200 10^3/uL (150-400); RED BLOOD CELL COUNT 4.26 10^6/uL (4.40-6.38); RED CELL DISTRIBUTION WIDTH 13.4 % (11.5-15.2)
[2017-08-03 05:37] LABS: INR 1.97 (0.83-1.16); PROTIME(PATIENT) 22.5 SEC (12.0-15.0)
[2017-08-03 05:43] LABS: ANION GAP 8 mEq/L (8-16); CALCIUM 10.3 mg/dL (8.5-10.4); CARBON DIOXIDE 24 mEq/l (22-31); CHLORIDE 104 mEq/L (97-110); CHOLESTEROL 177 mg/dL (140-220); CHOLESTEROL/HDL RATIO 5.36 RATIO (1.00-4.97); CREATININE 0.7 mg/dL (0.7-1.3); DIGOXIN 0.7 ng/mL (0.8-2.0); GLOMERULAR FILTRATION RATE > 60; GLUCOSE 146 mg/dL (70-100); HIGH DENSITY LIPOPROTEIN 33 mg/dL (40-65); LDL/HDL RATIO 3.27 RATIO (1.00-3.64); LOW DENSITY LIPOPROTEIN 108 mg/dL (80-100); NON-HIGH DENSITY LIPOPROTEIN 144 mg/dL (90-129); POTASSIUM 4.6 mEq/L (3.5-5.2); SODIUM 136 mEq/L (134-144); TRIGLYCERIDE 182 mg/dL (40-150); VERY LOW DENSITY LIPOPROTEINS 36 mg/dL (8-25)
[2017-08-03 05:49] LABS: CREATINE KINASE-MB FRACTION 3.03 ng/mL (0.00-3.19); TROPONIN I < 0.012 ng/mL (0.000-0.034)
[2017-08-03] MEDS ORDERED: LEVOTHYROXINE 150 MCG TAB PO SCH (06:00)
[2017-08-03] MEDS ORDERED: METOPROLOL SUCCINATE XR 25 MG TAB PO SCH (09:00)
[2017-08-03] MEDS ORDERED: DULoxetine 30 MG CAP PO SCH (09:00)
[2017-08-03] MEDS ORDERED: ASPIRIN EC 81 MG TAB PO SCH (09:00)
[2017-08-03] MEDS ORDERED: CLOPIDOGREL BISULFATE 75 MG TAB PO SCH (09:00)
[2017-08-03] MEDS ORDERED: PANTOPRAZOLE SODIUM 40 MG TAB PO SCH (09:00)
[2017-08-03] MEDS ORDERED: GABAPENTIN 300 MG CAP PO SCH (09:00)
[2017-08-03] MEDS ORDERED: METHADONE HCL 5 MG TAB PO SCH ×2 (09:00)
[2017-08-03] MEDS: INSULIN LISPRO 100 UNIT/ML SC SCH ×4 (09:53→19:33)
[2017-08-03] MEDS ORDERED: DIGOXIN 125 MCG TAB PO SCH (10:00)
[2017-08-03 11:17] LABS: HEMOGLOBIN A1C 7.9 % (4.0-6.0)
[2017-08-03] MEDS ORDERED: NITROGLYCERIN 0.4 MG BTL SL PRN (12:10)
[2017-08-03] MEDS ORDERED: diphenhydrAMINE 25 MG CAP PO ONE ×2 (12:10→15:19)
[2017-08-03] MEDS ORDERED: FAMOTIDINE 20 MG TAB PO ONE (12:10)
[2017-08-03] MEDS ORDERED: DIAZEPAM 5 MG TAB PO ONE (12:10)
--- NOTE | 2017-08-03 12:13 | PDPROPOC ---
Sedation Plan of Care Sedation Plan of Care: vital signs stable, mental status noted, patient educated of risks, benefits, alternatives, patient can tolerate sedation ASA Classification: ASA 2 Mallampati Score: Class 3 Mallampati Reference Image: Patient passed 3-3-2 rule?: Yes
--- NOTE | 2017-08-03 12:13 | PDHPUP ---
History & Physical Update H&P update statement: This history and physical update is based on an assessment of the patient which was completed after admission or registration (within 24 hours), but prior to the surgery/procedure. H&P update: H&P reviewed & patient examined, no change in patient's condition since H&P completed (Fred test right wrist normal at less than 5 seconds.)
--- NOTE | 2017-08-03 12:39 | CPEKG ---
Heart Rate: 80 RR Interval: 750 P-R Interval: 173 QRSD Interval: 154 QT Interval: 424 QTC Interval: 490 P [place]: 0 QRS [place]: -88 T Wave [place]: 84 EKG Severity - ABNORMAL ECG - EKG Impression: VENTRICULAR-PACED RHYTHM Electronically Signed By: Jmaes Baltazar 03-Aug-2017 15:53:30
[2017-08-03 13:14] LABS: % IMMATURE GRANULYOCYTES 0.2 % (0.0-1.1); ABSOLUTE IMMATURE GRANULOCYTES 0.01 10^3/uL (0.00-0.10); ADD DIFF? NO; ADD MORPH? NO; ADD SCAN? NO; ATYPICAL LYMPHOCYTE FLAG 20 (0-99); FRAGMENT RBC FLAG 10 (0-99); HEMATOCRIT 41.6 % (40.0-51.0); HEMOGLOBIN 14.2 g/dL (13.7-17.5); LEFT SHIFT FLG 0 (0-99); LIPEMIA HEMOLYSIS FLAG 90 (0-99); MEAN CELL HEMOGLOBIN 32.6 pg (27.9-34.1); MEAN CELL HEMOGLOBIN CONCENTR. 34.1 g/dL (32.4-36.7); MEAN CELL VOLUME 95.4 fL (81.5-99.8); MEAN PLATELET VOLUME 9.9 fL (8.7-11.7); PLATELET CLUMPS FLAG 0 (0-99); PLATELET COUNT 204 10^3/uL (150-400); RED BLOOD CELL COUNT 4.36 10^6/uL (4.40-6.38); RED CELL DISTRIBUTION WIDTH 13.3 % (11.5-15.2)
[2017-08-03 13:24] LABS: INR 2.02 (0.83-1.16)
[2017-08-03 13:25] LABS: APTT 35.7 SEC (23.0-38.0)
[2017-08-03 13:29] LABS: ANION GAP 9 mEq/L (8-16); CALCIUM 10.5 mg/dL (8.5-10.4); CARBON DIOXIDE 23 mEq/l (22-31); CHLORIDE 105 mEq/L (97-110); CREATININE 0.7 mg/dL (0.7-1.3); GLOMERULAR FILTRATION RATE > 60; GLUCOSE 164 mg/dL (70-100); MAGNESIUM 1.5 mg/dL (1.6-2.3); POTASSIUM 4.7 mEq/L (3.5-5.2); SODIUM 137 mEq/L (134-144)
[2017-08-03] MEDS ORDERED: FAMOTIDINE 20 MG TAB ONE (15:19)
[2017-08-03] MEDS ORDERED: DIAZEPAM 5 MG TAB ONE (15:19)
[2017-08-03] MEDS ORDERED: LIDOCAINE 1% 300 MG/30 ML SDV ONE (15:36)
[2017-08-03] MEDS ORDERED: MIDAZOLAM 2 MG/2 ML VIAL ONE (15:37)
[2017-08-03] MEDS ORDERED: IOPAMIDOL (ISOVUE-370) 150 ML BTL IV ONE (15:37)
[2017-08-03] MEDS ORDERED: fentaNYL 100 MCG/2 ML INJ ONE (15:37)
--- NOTE | 2017-08-03 15:41 | GCON ---
[f rep st] CONSULTATION CARDIOLOGY CONSULTATION DATE OF CONSULTATION: 08/03/2017 REQUESTING PHYSICIAN: Noris Singh MD. REASON FOR CONSULTATION: 1. Chest pain. 2. Coronary artery disease with a history of prior PCI. HISTORY: The patient is an 82-year-old male who had been followed in our practice until December 2013. He has a history of chronic atrial fibrillation and sick sinus syndrome with prior single-chamber pacemaker implantation. More recently, he had been followed by Dr. Jan Kamara at [facility]. He presented to [facility] on September 14, 2015, with an acute myocardial infarction. It sounds as if he had PCI of the left anterior descending. Yesterday, he developed sharp substernal and left-sided chest discomfort with radiation to the left arm, which was similar to what he experienced with his acute [place]. The symptoms resolved spontaneously after 2-3 hours. Based on his symptoms, he presented to the emergency room at [facility] via EMS. The patient was placed in observation. Serial troponins have been negative. His ECG demonstrates atrial fibrillation with a paced ventricular rhythm. PAST MEDICAL HISTORY: In addition to his cardiac issues mentioned above, he has a history of type 2 diabetes, hypertension, hyperlipidemia, gastroesophageal reflux, esophageal dysmotility, COPD, and sleep apnea. He is morbidly obese. SURGICAL HISTORY: Includes multiple back surgeries. HOME MEDICATIONS: Include aspirin, clopidogrel, digoxin, metoprolol, and warfarin. ALLERGIES: Tetracycline. FAMILY HISTORY: Noncontributory. SOCIAL HISTORY: He is a former smoker. He does not consume alcohol. He is . REVIEW OF SYSTEMS: Apart from the chest discomfort mentioned in the History of Present Illness, a 10-point review was negative. PHYSICAL EXAMINATION: VITAL SIGNS: Heart rate is 70 beats per minute with a paced rhythm on monitor. Blood pressure 137/68. GENERAL: This is an obese male in no acute distress. He is alert and oriented x3. HEAD AND NECK: No scleral icterus. Mucous membranes moist. Carotid pulses 2+ without bruits. No JVD. CHEST: Lung vogt clear to auscultation. CARDIAC: Regular rate and rhythm with a normal S1 and S2. No murmur or gallop appreciated. ABDOMEN: Obese, soft, and nontender with normal bowel sounds. EXTREMITIES: 2+ pulses and no peripheral edema. An Fred test on the right wrist was normal at less than 5 seconds. LABORATORY STUDIES: Sodium 137, potassium 4.7, BUN and creatinine 14 and 0.7. Troponin less than 0.012. Total cholesterol is 177 with HDL 33, LDL 108, and triglycerides 182. CBC shows a white blood cell count of 4.19 with hemoglobin and hematocrit of 14.2 and 41.6. Platelet count 204,000. IMPRESSION: This is an 82-year-old male with a history of coronary artery disease and prior percutaneous coronary intervention. He presents with symptoms similar to his myocardial infarction. He has ruled out for an acute coronary syndrome. PLAN: The patient will undergo cardiac catheterization later today. Further diagnostic and therapeutic decisions await the outcome of that study. /[id number]/MODL MTDD
[2017-08-03] MEDS ORDERED: VERAPAMIL 5 MG/2 ML VIAL ONE (15:42)
[2017-08-03] MEDS ORDERED: HEPARIN 10,000 UNIT/10 ML MDV ONE (15:42)
[2017-08-03] MEDS ORDERED: WARFARIN SODIUM 7.5 MG TAB PO SCH (16:00)
--- NOTE | 2017-08-03 16:18 | ASMTCMCOM ---
CM Note CM Note Notes: Case Management Note Met w/pt Liberty. Liberty does not have a cell phone, use home phone to contact. Son Brandon Rivero can be reached at [phone]. Pt lives with independently prior to admission. No case management d/c needs identified at this time d/t family support and activity levels prior to admission. No PT or OT evals have been ordered. Case Management d/c poc: Anticipating home independent with family support when medically stable. Date Signed: 08/03/2017 04:17 PM Electronically Signed By:Aysha Liu RN
[2017-08-03] MEDS ORDERED: ATROPINE SULFATE 1 MG/10 ML SYR IVP PRN (17:03)
[2017-08-03] MEDS ORDERED: HYDROCODONE/APAP 5/325 TAB PO PRN (17:03)
[2017-08-03] MEDS ORDERED: OXYCODONE/APAP 5/325 TAB PO PRN (17:03)
--- NOTE | 2017-08-03 17:09 | PDDXCAT ---
Diagnostic Cath Note - . Date: 08/03/17 Clip Baker: Caio Indication: other (Chest pain; CAD with h/o prior ND and PCI of LAD.) - Procedure Access: right wrist Procedure: left heart catheterization, coronary angiography, left ventriculogram - Materials Left Heart Cath size: 5F Left Heart Cath materials: other (Sightseer, Jose's right, and Pigtail) - Findings-Left Heart Catheterization LM: Normal. LAD: Fluoroscopy reveals the presence of a previously placed stent in the mid- LAD. Angiography demonstrates that the stent is widely patent. The remainder of the LAD and its diagonal branches exhibit minimal luminal irregularities. LCX: Minimal irregularities. RCA: Minimal irregularities. EDP: 14 mmHg LVEF: 60% Wall motion: Normal. Complications: None Estimated blood loss: <50ml Closure method: TR Band Assessment: 1) Normal LV systolic function. 2) Patent LAD stent site. 3) Mild coronary atherosclerosis. Patient Problems: Problems Problem Status Onset Chest pain Acute Chest pain Acute
--- NOTE | 2017-08-03 17:58 | HOSPPROG ---
Hospitalist Progress Note Assessment/Plan: 82M with CAD, recurrent CP after a negative nuclear stress. S/p cath without intervention. Plan was to discharge, but will monitor overnight given development of a R radial hematoma post-cath. # CP - neg cath # radial hematoma post-cath - will monitor overnight given his warfarin/plavix/asa therapy # CAD s/p PCI - asa/plavix/BB - not on statin # a-fib/ppm - warfarin, metop # GERS/esophageal dysmotility - may be source of CP? # DM2 - home insulin # hypothyroid - synthroid # chronic resp failure # DO/CPAP # morbid obesity Subjective: seen post cath, somewhat sedated Objective: Vital Signs Temp Pulse Resp BP Pulse Ox 36.3 C 69 14 137/68 H 91 L 08/03/17 12:00 08/03/17 12:00 08/03/17 12:00 08/03/17 12:00 08/03/17 12:00 Laboratory Results 08/03/17 13:00 08/03/17 13:00 08/02/17 08/03/17 08/04/17 05:59 05:59 05:59 Intake Total 500 350 Output Total 325 600 Balance 175 -250 PT 23.0 SEC (12.0-15.0) H 08/03/17 13:00 INR 2.02 (0.83-1.16) H 08/03/17 13:[address] Kearney - Time Spent With Patient Time Spent with Patient: greater than 25 minutes Time Spent with Patient: Greater than 25 minutes spent on this patients care, greater than 50% of time spent counseling, educating, and coordinating care regarding the above mentioned plan. ICD10 Worksheet Patient Problems: Problems Problem Status Onset Chest pain Acute Chest pain Acute
[2017-08-03] MEDS ORDERED: metFORMIN HCL 500 MG TAB PO SCH (18:00)
[2017-08-03] MEDS: PANTOPRAZOLE SODIUM 40 MG TAB PO SCH (20:02)
[2017-08-03] MEDS: METOPROLOL SUCCINATE XR 25 MG TAB PO SCH (20:02)
[2017-08-03] MEDS ORDERED: TAMSULOSIN HCL 0.4 MG CAP PO SCH (21:00)
[2017-08-03] MEDS ORDERED: INSULIN GLARGINE 100 UNITS/ML SYRINGE SC SCH ×2 (21:00)
--- NOTE | 2017-08-03 22:13 | GDS ---
[f rep st] DISCHARGE SUMMARY DIAGNOSES: 1. Chest pain. 2. Atrial fibrillation. 3. Reported melena with negative fecal occult blood test. 4. Diabetes mellitus type 2 with neuropathy. 5. Hypertension. 6. Gastroesophageal reflux disease. 7. Esophageal dysmotility. 8. Chronic respiratory failure. 9. Obstructive sleep apnea. 10. Morbid obesity. HOSPITAL COURSE: An 82-year-old man admitted with chest pain. Notably, he had been admitted here ab out 5 months ago with chest pain. At that time, he had a negative D-dimer (he is also anticoagulated ), as well as a negative Lexiscan. He was readmitted with the same complaints. Because he had negat jennifer test and ongoing complaints, he underwent a catheterization. This showed a patent LAD stent with no other stenoses. No intervention was taken. Given his cardiac issues, he would like to follow up with [facility]. A short followup will be set up. He should also follow up with Dr. Issa for ongoing management of his multiple medical problems. He is discharged home in stable condition afte r he clears the post catheterization protocol. /[id number]/MODL
[2017-08-04] MEDS ORDERED: LEVOTHYROXINE 150 MCG TAB PO SCH (06:00)
[2017-08-04 06:11] LABS: INR 2.12 (0.83-1.16); PROTIME(PATIENT) 23.9 SEC (12.0-15.0)
[2017-08-04] MEDS: INSULIN LISPRO 100 UNIT/ML SC SCH ×4 (08:31→12:29)
--- NOTE | 2017-08-04 08:46 | PDMN ---
Medical Necessity Medical necessity: change to IP; los>2mn for recurrent chest pain after neg stress test; subsequent cath w/development of R radial hematoma post cath; requires overnight monitoring; comorbid CAD, AFIB, DM2, chronic resp failure, DO/CPAP, GERS, and morbid obesity; per order and progress note 08/03/17
[2017-08-04] MEDS ORDERED: CLOPIDOGREL BISULFATE 75 MG TAB PO SCH (09:00)
[2017-08-04] MEDS ORDERED: DULoxetine 60 MG CAP PO SCH (09:00)
[2017-08-04] MEDS ORDERED: CHOLECALCIFEROL VIT D3 1,000 UNITS TAB PO SCH (09:00)
[2017-08-04] MEDS ORDERED: TAMSULOSIN HCL 0.4 MG CAP PO SCH (09:00)
[2017-08-04] MEDS ORDERED: DIGOXIN 125 MCG TAB PO SCH (09:00)
[2017-08-04] MEDS ORDERED: ASPIRIN EC 81 MG TAB PO SCH (09:00)
[2017-08-04] MEDS: PANTOPRAZOLE SODIUM 40 MG TAB PO SCH (09:48)
[2017-08-04] MEDS: GABAPENTIN 300 MG CAP PO SCH (09:48)
[2017-08-04] MEDS: METOPROLOL SUCCINATE XR 25 MG TAB PO SCH (09:48)
[2017-08-04] MEDS: METHADONE HCL 5 MG TAB PO SCH (09:49)
[2017-08-04 12:23] VITALS: BP 135/73; PULSE 70; RESP 16; TEMP 98.2; O2SAT 85
--- NOTE | 2017-08-04 15:24 | ASDISCHSUM ---
Discharge Information Plan Status:Home with No Needs Medically Cleared to Leave:08/03/2017 Discharge Date:08/04/2017 01:37 PM CM D/C Disposition:Home, Routine, Self-Care ADT D/C Disposition:Home, Routine, Self-Care Projected Discharge Date:08/04/2017 01:37 PM Transportation at D/C:Family Discharge Delay Reason: Follow-Up Date:08/04/2017 01:37 PM Discharge Slot: Final Diagnosis: Placement Information Patient Contact Information Contact Name:KATJA Relationship: Address:[address] [place] [address] Work Phone: [facility] Alternate Phone: [facility]/Zip Code:[place] [address] Email: Financial Information Financial Class: Primary Plan Desc:MEDICARE INPATIENT Primary Plan Number:[id number] Secondary Plan Desc:[employer]/MDR SUPPLEMENT Secondary Plan Number:[id number] Assessment Information [facility] CM Progress Note CM Note CM Note Notes: Case Management Note Met w/pt Liberty. Liberty does not have a cell phone, use home phone to contact. Osmany Rivero can be reached at [phone]. Pt lives with independently prior to admission. No case management d/c needs identified at this time d/t family support and activity levels prior to admission. No PT or OT evals have been ordered. Case Management d/c poc: Anticipating home independent with family support when medically stable. Date Signed: 08/03/2017 04:17 PM Electronically Signed By:Aysha Liu RN Intervention Information Intervention Type:*JUDE-Signed Date of Service:08/03/2017 10:20 AM Patient Type:Observation Staff Member:Joanne Oliver Hours: Discipline: Severity: Comment: Intervention Type:*Occurence 72 Date of Service:08/04/2017 01:48 PM Patient Type:Inpatient Staff Member:NINO Figueredo Susan Hours: Discipline: Severity: Comment:
[2017-08-04] MEDS ORDERED: WARFARIN SODIUM 5 MG TAB PO SCH (16:00)
--- NOTE | 2017-08-04 16:26 | GDS ---
[f rep st] DISCHARGE SUMMARY DISCHARGE DIAGNOSES: 1. Chest pain with negative cardiac catheterization. 2. Radial hematoma post catheterization. 3. History of coronary artery disease, status post percutaneous coronary intervention. 4. Atrial fibrillation with permanent pacemaker. 5. Gastroesophageal reflux disease/esophageal dysmotility. 6. Diabetes mellitus type 2. 7. Hypothyroidism. 8. Chronic respiratory failure. 9. Obstructive sleep apnea, on CPAP. 10. Morbid obesity. HOSPITAL COURSE: Please see discharge summary dictated 08/03/2017. The patient was not discharged o n that date as there was concern for a growing radial hematoma. He is on warfarin, aspirin and Plavi x. On the day of discharge, this hematoma has not grown significantly. He is now safe for discharge . No other changes were made. BILLING: I spent less than 30 minutes on the day of discharge, coordinating care. /[id number]/MODL
== END 2017-08-04 13:37 | disposition home or self-care (01) | DRG 920 ==
LOC: EDUNIT# → F2W 22:53 → OBSVTOIN 08-03 17:50
PROVIDERS: ADMIT Family Medicine; ATTEND Student in an Organized Health Care Education/Training Program
PROC: B2151ZZ Fluoroscopy of Left Heart using Low Osmolar Contrast (ICD-10-PCS; principal; 2017-08-03)
PROC: B2111ZZ Fluoroscopy of Multiple Coronary Arteries using Low Osmolar Contrast (ICD-10-PCS; principal; 2017-08-03)
PROC: 4A023N7 Measurement of Cardiac Sampling and Pressure, Left Heart, Percutaneous Approach (ICD-10-PCS; principal; 2017-08-03)
DX: L76.32 Postprocedural hematoma of skin and subcutaneous tissue following other procedure (principal); R07.89 Other chest pain; I25.10 Atherosclerotic heart disease of native coronary artery without angina pectoris; I25.2 Old myocardial infarction; Z95.5 Presence of coronary angioplasty implant and graft; Z79.02 Long term (current) use of antithrombotics/antiplatelets; Z79.82 Long term (current) use of aspirin; I48.91 Unspecified atrial fibrillation; Z79.01 Long term (current) use of anticoagulants; E66.01 Morbid (severe) obesity due to excess calories; Z68.41 Body mass index [BMI] 40.0-44.9, adult; E11.9 Type 2 diabetes mellitus without complications; I10 Essential (primary) hypertension; E78.5 Hyperlipidemia, unspecified; K21.9 Gastro-esophageal reflux disease without esophagitis; J44.9 Chronic obstructive pulmonary disease, unspecified; J96.10 Chronic respiratory failure, unspecified whether with hypoxia or hypercapnia; G47.33 Obstructive sleep apnea (adult) (pediatric)
CPT/HCPCS: C1769; G0378; J1644; J1815; J2250; J3010; Q9967

== ENCOUNTER → 2017-11-12 | Outpatient (CLI) | payer OTHER, MEDICARE ==
[~2017-11-12] MED LIST: IOPAMIDOL (ISOVUE-300) 100 ML BTL ONE
== END ==
LOC: FIMAGING 12:20
PROVIDERS: ATTEND Family Medicine
DX: R90.82 White matter disease, unspecified (principal); Z79.01 Long term (current) use of anticoagulants
CPT/HCPCS: 70470; Q9967

== ENCOUNTER → 2017-12-02 | Outpatient (CLI) | payer OTHER, MEDICARE | LOC: BHFA 15:30 | PROVIDERS: ATTEND Internal Medicine Interventional Cardiology | DX: G45.9 Transient cerebral ischemic attack, unspecified (principal) ==

== ENCOUNTER 2018-12-21 04:29 | Observation (INO) | payer OTHER, MEDICARE ==
[2018-12-21] MEDS ORDERED: NITROGLYCERIN 0.4 MG BTL SL ONE (04:39)
--- NOTE | 2018-12-21 04:44 | EDPHY ---
H & P Time Seen by Provider: 12/21/18 04:38 HPI/ROS: Chief Complaint: Chest pain HPI: 83-year-old male with a history of coronary artery disease, IN in 2016 status post stenting. Patient has a pacemaker in place. He woke this morning at about 3 o'clock with substernal chest pain. Pain at worst is about a 7/10. It occasionally radiates to his jaw. Says feels very similar to when he had his last heart attack. Has had a recent mild cough which has been nonproductive. No fevers or chills. He also has a history of diabetes and hypertension. No leg pain or swelling. No recent travel. There are no aggravating or alleviating factors. EMS gave him 4 baby aspirin. They noted that he was in a paced rhythm. They have not given him any nitrates. ROS: 10 systems were reviewed and were negative except those elements noted in the HPI. PMH: Coronary artery disease, diabetes, hypertension Social History: No smoking, no alcohol, no recreational drug use Family History: non-contributory Physical Exam: Gen: Awake, Alert, No Distress HEENT: Nose: no rhinorrhea Eyes: PERRLA, EOMI Mouth: Moist mucosa Neck: Supple, no JVD Chest: nontender, lungs clear to auscultation Heart: S1, S2 normal, no murmur Abd: Soft, non-tender, no guarding Back: no CVA tenderness, no midline tenderness Ext: no edema, non-tender Skin: no rash Neuro: CN II-XII intact, Sensation grossly intact, Strength 5/5 in bilateral upper and lower extremities - Personal History Tetanus Vaccine Date: 2009 - Medical/Surgical History Hx Asthma: No Hx Chronic Respiratory Disease: Yes Hx Diabetes: Yes Hx Cardiac Disease: Yes Hx Renal Disease: No Hx Cirrhosis: No Hx Alcoholism: No Hx HIV/AIDS: No Hx Splenectomy or Spleen Trauma: No Other PMH: PMH:CAD,AFIB,HTN,PACEMAKER, Sleep apnea, high cholesterol, DM. PSH: PACER,BACK,EYE,ORTHO,APPY - Social History Smoking Status: Former smoker (quit smoking 20 years ago.) Constitutional: Initial Vital Signs Temperature (C) 36.6 C 12/21/18 04:25 Heart Rate 68 12/21/18 04:25 Respiratory Rate 16 12/21/18 04:25 Blood Pressure 148/78 H 04/09/19 04:25 O2 Sat (%) 90 L 12/21/18 04:25 O2 Delivery Mode Nasal Cannula O2 (L/minute) 2 Allergies/Adverse Reactions: tetracycline [Tetracycline] Allergy (Intermediate, Verified 12/21/18 04:46) Hives Home Medications: Medication Instructions Recorded Aspirin EC [Aspirin EC 81 mg (*)] 81 mg PO DAILY 02/24/17 Cholecalciferol Vit D3 [Vitamin D3 4,000 units PO DAILY 02/24/17 (*)] Clopidogrel Bisulfate [Plavix (*)] 75 mg PO DAILY 02/24/17 Digoxin [Lanoxin 125 mcg (RX)] 125 mcg PO DAILY 02/24/17 Gabapentin [Neurontin 300 MG (*)] 600 mg PO BID 02/24/17 Insulin Glargine [Lantus 100 25 units SC HS 02/24/17 UNITS/ML] Levothyroxine [Synthroid 150 mcg 150 mcg PO DAILY06 02/24/17 (*)] Methadone HCl [Methadone 5 mg (*)] 5 mg PO BID 02/24/17 Metoprolol Succinate Xr [Toprol Xl 25 mg PO BID 02/24/17 25 mg (*)] Pantoprazole Sodium [Protonix 40mg 40 mg PO BID 02/24/17 (*)] Tamsulosin HCl [Flomax 0.4 MG (*)] 0.4 mg PO DAILY 02/24/17 Warfarin Sodium [Coumadin 5MG (*)] 5 mg PO SUTUTH@16 02/24/17 Warfarin Sodium [Coumadin 7.5MG 7.5 mg PO MOWEFRSA@16 02/24/17 (*)] DULoxetine [Cymbalta 60 MG (*)] 60 mg PO DAILY 08/03/17 Insulin Aspart [novoLOG] 15 unit SC TIDMEAL 08/03/17 metFORMIN HCL [Glucophage 500 mg 500 mg PO BIDMEAL 08/03/17 (*)] Medical Decision Making - Diagnostics EKG Interpretation: ECG time 4:32 a.m., ventricularly paced rhythm with a rate of 80. Unchanged from July 2017. ED Course/Re-evaluation: Patient's troponin is 0.01. Discussed with Dr. Rothman, hospitalist. Admitted for further evaluation. - Data Points Laboratory Results: Laboratory Results 12/21/18 04:30 04/09/19 04:30 12/21/18 12/21/18 12/21/18 04:43 04:30 04:30 WBC 5.21 10^3/uL 10^3/uL (3.80-9.50) RBC 4.44 10^6/uL 10^6/uL (4.40-6.38) Hgb 14.1 g/dL g/dL (13.7-17.5) Hct 42.7 % % (40.0-51.0) MCV 96.2 fL fL (81.5-99.8) MCH 31.8 pg pg (27.9-34.1) MCHC 33.0 g/dL g/dL (32.4-36.7) RDW 13.0 % % (11.5-15.2) Plt Count 211 10^3/uL 10^3/uL (150-400) MPV 10.1 fL fL (8.7-11.7) Neut % (Auto) 49.3 % % (39.3-74.2) Lymph % (Auto) 39.3 % % (15.0-45.0) [place] % (Auto) 8.3 % % (4.5-13.0) Eos % (Auto) 2.7 % % (0.6-7.6) Baso % (Auto) 0.2 % L % (0.3-1.7) Nucleat RBC Rel Count 0.0 % % (0.0-0.2) Absolute Neuts (auto) 2.57 10^3/uL 10^3/uL (1.70-6.50) Absolute Lymphs (auto) 2.05 10^3/uL 10^3/uL (1.00-3.00) Absolute Monos (auto) 0.43 10^3/uL 10^3/uL (0.30-0.80) Absolute Eos (auto) 0.14 10^3/uL 10^3/uL (0.03-0.40) Absolute Basos (auto) 0.01 10^3/uL L 10^3/uL (0.02-0.10) Absolute Nucleated RBC 0.00 10^3/uL 10^3/uL (0-0.01) Immature Gran % 0.2 % % (0.0-1.1) Immature Gran # 0.01 10^3/uL 10^3/uL (0.00-0.10) Sodium 136 mEq/L mEq/L (135-145) Potassium 4.6 mEq/L mEq/L (3.5-5.2) Chloride 102 mEq/L mEq/L (97-110) Carbon Dioxide 26 mEq/l mEq/l (22-31) Anion Gap 8 mEq/L mEq/L (6-14) BUN 17 mg/dL mg/dL (7-23) Creatinine 0.8 mg/dL mg/dL (0.7-1.3) Estimated GFR > 60 Glucose 141 mg/dL H mg/dL (70-100) Calcium 11.0 mg/dL H mg/dL (8.5-10.4) Phosphorus 3.4 mg/dL mg/dL (2.5-4.5) POC Troponin I 0.01 ng/mL ng/mL (0.00-0.08) Medications Given: Discontinued Medications Nitroglycerin (Nitrostat) 0.4 mg SL EDNOW ONE Stop: 12/21/18 04:40 Last Admin: 12/21/18 04:55 Dose: 1 tab Point of Care Test Results: Chemistry 12/21/18 04:43 POC Troponin I 0.01 ng/mL ng/mL (0.00-0.08) Departure - Departure Disposition: [facility] Inpatient Acute Clinical Impression: Chest pain Condition: Fair
[2018-12-21 04:47] LABS: PLATELET COUNT 211 10^3/uL (150-400)
[2018-12-21] MEDS ORDERED: ONDANSETRON 4 MG/2 ML VIAL IVP PRN (05:22)
[2018-12-21] MEDS ORDERED: ACETAMINOPHEN 325 MG TAB PO PRN (05:22)
[2018-12-21] MEDS ORDERED: ONDANSETRON DISINTEGRATING 4 MG TAB PO PRN (05:22)
[2018-12-21] MEDS ORDERED: NITROGLYCERIN 0.4 MG BTL SL PRN (05:26)
[2018-12-21] MEDS ORDERED: D50W 25 GM/50 ML SYR IVP PRN (05:35)
[2018-12-21 05:49] LABS: INR 1.92 (0.83-1.16); PROTIME(PATIENT) 21.1 SEC (12.0-15.0)
--- NOTE | 2018-12-21 05:58 | PDGENHP ---
History and Physical - Chief Complaint Chest pain - History of Present Illness 83 yo M w/ hx of CAD, AF s/p PPM, and IDDM presents with chest pain. He was woken from sleep around 3 AM with left sided chest pain. He noted some radiation to his shoulder. He states this reminds him of the chest pain during his CA in 2016 but more severe. In the ED his troponin is negative. His ECG is V -paced and unchanged from a 2017 comparison. Of note, he was admitted twice for similar symptoms in 2017 and had negative nuclear stress test and negative cardiac catheterization. Case discussed with ED physician Dr. Agustin; records reviewed and summarized above. History Information - Allergies/Home Medication List Allergies/Adverse Reactions: tetracycline [Tetracycline] Allergy (Intermediate, Verified 12/21/18 04:46) Hives Home Medications: Aspirin EC [Aspirin EC 81 mg (*)] 81 mg PO DAILY 02/24/17 [Last Taken 08/02/17] Cholecalciferol Vit D3 [Vitamin D3 (*)] 4,000 units PO DAILY 02/24/17 [Last Taken 08/02/17] Clopidogrel Bisulfate [Plavix (*)] 75 mg PO DAILY 02/24/17 [Last Taken 08/02/17] Digoxin [Lanoxin 125 mcg (RX)] 125 mcg PO DAILY 02/24/17 [Last Taken 08/02/17] Gabapentin [Neurontin 300 MG (*)] 600 mg PO BID 02/24/17 [Last Taken 08/02/17 21 :00] Insulin Glargine [Lantus 100 UNITS/ML] 25 units SC HS 02/24/17 [Last Taken 08/02] Levothyroxine [Synthroid 150 mcg (*)] 150 mcg PO DAILY06 02/24/17 [Last Taken ] Methadone HCl [Methadone 5 mg (*)] 5 mg PO BID 02/24/17 [Last Taken 08/02/17 21: 00] Metoprolol Succinate Xr [Toprol Xl 25 mg (*)] 25 mg PO BID 02/24/17 [Last Taken 08/02/17 21:00] Pantoprazole Sodium [Protonix 40mg (*)] 40 mg PO BID 02/24/17 [Last Taken 21:00] Tamsulosin HCl [Flomax 0.4 MG (*)] 0.4 mg PO DAILY 02/24/17 [Last Taken 08/02/17 ] Warfarin Sodium [Coumadin 5MG (*)] 5 mg PO SUTUTH@02/24/17 [Last Taken ] Warfarin Sodium [Coumadin 7.5MG (*)] 7.5 mg PO MOWEFRSA@02/24/17 [Last Taken 08/01/17] DULoxetine [Cymbalta 60 MG (*)] 60 mg PO DAILY 08/03/17 [Last Taken 08/02/17] Insulin Aspart [novoLOG] 15 unit SC TIDMEAL 08/03/17 [Last Taken 08/02/17 18:00] metFORMIN HCL [Glucophage 500 mg (*)] 500 mg PO BIDMEAL 08/03/17 [Last Taken 18:00] I have personally reviewed and updated: family history, medical history - Past Medical History Additional medical history: CAD with history of stents. atrial fib s/p pacer, hx soft tissue infection at surgical site resolved. chronic back pain. DM II. benign essential HTN. HLD. gerd. esophageal dysmotility. chronic respiratory failure on 3liters daytime, 5 liters with CPAP. DO on CPAP. left eye blindness. diabetic neuropathy bilateral feet. morbid obesity (BMI 44.9). chronic LE edema - Surgical History Additional surgical history: multiple lumbar surgeries. L eye surgery x 5. cardiac cath/stent 09/2015. appy. angio/stent "abdomen" for PVD. - Family History Additional family history: mother - DM II. father - CAD/CA age 73. patients children are all healthy - Social History Smoking Status: Former smoker (quit smoking 20 years ago.) Additional social history: Patient and lives with . COR - patient desires to be DNR/DNI. this was also reviewed with the who does not agree but respects patient's wishes. Review of Systems Review of Systems: ROS: 10pt was reviewed & negative except for what was stated in HPI & below Physical Exam Physical Exam: Temp Pulse Resp BP Pulse Ox 36.6 C 79 16 106/59 L 93 12/21/18 04:25 12/21/18 05:01 12/21/18 05:01 12/21/18 05:01 12/21/18 05:01 Constitutional: obese, uncomfortable Eyes: PERRL, EOMI Ears, Nose, Mouth, Throat: moist mucous membranes, no oral mucosal ulcers Cardiovascular: regular rate and rhythym, systolic murmur Respiratory: no respiratory distress, clear to auscultation Gastrointestinal: normoactive bowel sounds, soft, non-tender abdomen Skin: warm, normal color Musculoskeletal: full muscle strength, no muscle tenderness Neurologic: AAOx3, CN II-XII Intact Psychiatric: interacting appropriately, not anxious Lab Data & Imaging Review 12/21/18 04:30 12/21/18 04:30 WBC 5.21 10^3/uL (3.80-9.50) 12/21/18 04:30 RBC 4.44 10^6/uL (4.40-6.38) 12/21/18 04:30 Hgb 14.1 g/dL (13.7-17.5) 12/21/18 04:30 Hct 42.7 % (40.0-51.0) 12/21/18 04:30 MCV 96.2 fL (81.5-99.8) 12/21/18 04:30 MCH 31.8 pg (27.9-34.1) 12/21/18 04:30 MCHC 33.0 g/dL (32.4-36.7) 12/21/18 04:30 RDW 13.0 % (11.5-15.2) 12/21/18 04:30 Plt Count 211 10^3/uL (150-400) 12/21/18 04:30 MPV 10.1 fL (8.7-11.7) 12/21/18 04:30 Neut % (Auto) 49.3 % (39.3-74.2) 12/21/18 04:30 Lymph % (Auto) 39.3 % (15.0-45.0) 12/21/18 04:30 [place] % (Auto) 8.3 % (4.5-13.0) 12/21/18 04:30 Eos % (Auto) 2.7 % (0.6-7.6) 12/21/18 04:30 Baso % (Auto) 0.2 % (0.3-1.7) L 12/21/18 04:30 Nucleat RBC Rel Count 0.0 % (0.0-0.2) 12/21/18 04:30 Absolute Neuts (auto) 2.57 10^3/uL (1.70-6.50) 12/21/18 04:30 Absolute Lymphs (auto) 2.05 10^3/uL (1.00-3.00) 12/21/18 04:30 Absolute Monos (auto) 0.43 10^3/uL (0.30-0.80) 12/21/18 04:30 Absolute Eos (auto) 0.14 10^3/uL (0.03-0.40) 12/21/18 04:30 Absolute Basos (auto) 0.01 10^3/uL (0.02-0.10) L 12/21/18 04:30 Absolute Nucleated RBC 0.00 10^3/uL (0-0.01) 12/21/18 04:30 Immature Gran % 0.2 % (0.0-1.1) 12/21/18 04:30 Immature Gran # 0.01 10^3/uL (0.00-0.10) 12/21/18 04:30 PT 21.1 SEC (12.0-15.0) H 12/21/18 04:30 INR 1.92 (0.83-1.16) H 12/21/18 04:30 Sodium 136 mEq/L (135-145) 12/21/18 04:30 Potassium 4.6 mEq/L (3.5-5.2) 12/21/18 04:30 Chloride 102 mEq/L (97-110) 12/21/18 04:30 Carbon Dioxide 26 mEq/l (22-31) 12/21/18 04:30 Anion Gap 8 mEq/L (6-14) 12/21/18 04:30 BUN 17 mg/dL (7-23) 12/21/18 04:30 Creatinine 0.8 mg/dL (0.7-1.3) 12/21/18 04:30 Estimated GFR > 60 12/21/18 04:30 Glucose 141 mg/dL (70-100) H 12/21/18 04:30 Calcium 11.0 mg/dL (8.5-10.4) H 12/21/18 04:30 Phosphorus 3.4 mg/dL (2.5-4.5) 12/21/18 04:30 POC Troponin I 0.01 ng/mL (0.00-0.08) 12/21/18 04:43 Visualized and Interpreted Chest x-ray results: Yes Chest X-Ray results: no infiltrate, other (Pacemaker) Visualized and Interpreted EKG results: Yes EKG Interpretation: Positive for: other (V-paced) Assessment & Plan Assessment: 83 yo M w/ hx of CAD, IDDM, and AF s/p PPM presents with chest pain. Plan: 1. Chest pain - Similar symptoms to CA in 2016. Initial troponin negative, ECG V -paced and unchanged from prior comparison. He was admitted twice in 2017 with similar symptoms and had negative nuclear stress test and negative cardiac cath. - Observe in PCU - Monitor on telemetry, trend cardiac enzymes - NTG, ECG PRN for chest pain - Will consult cardiology to consider next steps noting prior, negative testing for similar symptoms 2. Hx CAD - S/p CA w/ PCI in 2015. He had a negative nuc stress and negative LHC in 2017. - Continue DAPT, BB, statin - Acute management as above 3. IDDM - On insulin glargine 25 u qHS and aspart TID qAC as outpatient. - lispro SSI ordered - Continue basal pending reconciliation (took a dose last night) - D50 IV PRN for hypoglycemia, monitor BG ACHS 4. AF - S/p PPM, V-paced on admission ECG; on warfarin as an outpatient. - Monitor on telemetry - Check INR 5. Chronic pain - continue chronic medications pending reconciliation Diet - NPO Code - Full Ppx - warfarin Dispo - Admit under observation status
[2018-12-21] MEDS: INSULIN LISPRO 100 UNIT/ML SC SCH ×5 (07:57→18:09)
[2018-12-21] MEDS ORDERED: ENOXAPARIN 40 MG/0.4 ML SYR SC SCH (09:00)
[2018-12-21] MEDS: METOPROLOL SUCCINATE XR 25 MG TAB PO SCH ×2 (09:52→20:16)
[2018-12-21] MEDS: EZETIMIBE 10 MG TAB PO SCH (09:52)
[2018-12-21] MEDS: LISINOPRIL 5 MG TAB PO SCH (09:52)
[2018-12-21] MEDS: ASPIRIN EC 81 MG TAB PO SCH (09:53)
--- NOTE | 2018-12-21 11:06 | GCON ---
[f rep st] CONSULTATION CARDIOLOGY CONSULTATION REFERRING PHYSICIAN: Francisco Rothman MD SUPERVISING SALES AND LEASING AGENT: Dr. Storm Alejandro. INDICATION FOR CARDIOLOGY CONSULTATION: Known history of CAD with history of chest pressure. HISTORY OF PRESENT ILLNESS: The patient is an 83-year-old male who is known to our practice. His primary science editor is Dr. Brain Kearney. He has significant past history that includes coronary artery disease with previous IN and stent implantation of the LAD at [facility] on September of 2015, hypertension, hyperlipidemia, sick sinus sick sinus syndrome with remote pacemaker implantation, chronic atrial fibrillation. Patient reports that he has been in his usual state of health over the last few days, but reporting around 3 o'clock this morning, of awaking with a sudden onset of left anterior chest pressure. He does report it did rate up to a 7/10. This was associated with shortness of breath, symptoms did radiate into his jaw. He reports due to these concerns, he called EMS and was brought medial to the [facility] Emergency Department. Upon arrival, electrocardiogram was done, which showed underlying rhythm of atrial fibrillation with ventricular paced beats. Initial troponin was 0.01. He states that he did get sublingual nitroglycerin upon arrival to the ED, which he was uncertain it helped this pain, but does state within 30 minutes of arrival, his pain had subsided. He only continues to note shortness of breath at the time of my examination. 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 He reports no further chest pain or pressure since being here. He denies of any orthopnea, PND, edema, palpitations, lightheadedness, near-syncope, or syncopal events. Reports no recent fevers, chills, night sweats, and feels that he has been in fairly normal shape for last few weeks. PAST MEDICAL HISTORY: Patient with significant past history that includes: 1. CAD with previous IN. 2. Permanent atrial fibrillation. 3. Sick sinus syndrome. 4. Hypertension. 5. Hyperlipidemia (noted to be statin intolerant). 6. DO. 7. Type 2 diabetes. 8. Chronic back pain. 9. GERD. 10. Carotid artery disease. 11. Hypothyroidism. PAST SURGICAL HISTORY: 1. Heart catheterization with PCI of the LAD at [facility] in September of 2015. 2. Repeated coronary catheterization in July of 2017. 3. Multiple lumbar surgeries. 4. Left eye surgery. 5. Abdomen stent for PVD. FAMILY HISTORY: Father had CAD and IN at age 73. 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 He is a former smoker, quitting 20 years ago. He denies any alcohol use. Reports no illicit drug use. He is . He has 7 children from his first marriage that are all adults who are alive and well with no significant medical problems. ALLERGIES: Patient states that he has allergies to tetracycline. He has also been noted to be statin intolerant to multiple medications in the past. HOME MEDICATIONS: Wellbutrin 150 mg p.o. b.i.d., lisinopril 5 mg p.o. daily, Zetia 10 mg p.o. daily, digoxin 125 mcg p.o. daily, Cymbalta 30 mg p.o. daily, vitamin D 40 units p.o. h.s., aspirin 81 mg p.o. daily, methadone 5 mg p.o. b.i.d., Synthroid 150 mcg p.o. daily, Lantus 25 units subcu h.s., insulin ____ 15 units subcu t.i.d. meals, gabapentin 900 mg p.o. h.s., gabapentin 300 mg p.o. daily, metformin 500 mg p.o. b.i.d. meals, warfarin 7.5 mg p.o. Thursday, Thursday, Thursday, Thursday, warfarin 5 mg Thursday, , Thursday, Flomax 0.4 mg p.o. daily, Protonix 40 mg p.o. b.i.d., metoprolol 25 mg p.o. b.i.d. REVIEW OF SYSTEMS: A 10-point review of systems done on this patient all negative, except as mentioned above. PHYSICAL EXAMINATION: GENERAL APPEARANCE: Medium built, morbidly obese male. He is alert and oriented to person, place, time, and situation. He appears to be under no acute distress at the time of my examination. CURRENT VITAL SIGNS: Blood pressure 124/71, heart rate of 65, respirations 20, saturating 97% on 2 L nasal cannula, temperature of 37.1 degrees Celsius. HEENT: Head is normocephalic. Lips and tongue are pink and moist with no signs of cyanosis. Conjunctivae pink. NECK: Trachea is midline , +2 carotid pulses bilateral. No auscultated bruits. No jugular vein distention. RESPIRATORY: Lungs are clear bilaterally. No rhonchi, rales or wheezes. No accessory muscle use. No intercostal muscle retraction noted. CARDIAC: Regular rate, regular rhythm, S1, S2, 2/6 systolic murmur noted along the left sternal border. ABDOMEN: Soft, obese, nontender. No palpable masses. Bowel sounds x4 quadrants. VASCULAR: +2 carotids bilateral, +2 radials bilateral, +1 dorsal pedal and posterior tibial pulses bilateral. LABORATORY: Studies drawn today show a WBC of 5.21, hemoglobin of 14.1, hematocrit of 42.7, platelet count 211. INR was 1.92. Sodium of 136, potassium 4.6, chloride 102, CO2 of 26, BUN 17, creatinine 0.8, glucose 141, calcium 11.0, phosphorus 3.4. Troponin of 0.01. STUDIES: Electrocardiogram as mentioned above. Chest x-ray done on admission, showing no acute cardiopulmonary process, previous pacemaker lead implantation. ASSESSMENT AND PLAN: 1. Chest pressure: Patient reporting 1 episode of chest pressure with shortness of breath, waking him up this morning, similar to what he had previous to myocardial infarction. Currently is pain-free, but remains with shortness of breath. Patient is 100% ventricular paced. Initial troponin negative. At this time, I would like the patient to have an echocardiogram to evaluate left ventricle function , assure no wall motion abnormalities. Will also plan on cycling troponins again at 10 a.m. and 2 p.m. to evaluate for possible acute coronary syndrome. Also potentially with his chest pain and shortness of breath, could be pulmonary embolism, but I find this highly unlikely due to him being on chronic anticoagulation, even though his INR was subtherapeutic. We will plan on him getting a D-dimer with his 10 a.m. blood draw. Depending on results of echocardiogram, troponins, and laboratory studies , it would probably be beneficial for patient to undergo stress testing or cardiac coronary angiogram, pending results of testing as mentioned above. Will continue patient be n.p.o. until troponin cycles have been completed. 2. Coronary artery disease: Patient with known history of coronary artery disease with previous stents. His most recent catheterization was done in July of 2017. I did review the cineangiography and it looked like his LAD stent was open with no real significant stenosis, with minimal coronary artery disease in his circumflex and right coronary artery. We will plan for him to continue on current anti-platelet therapy of aspirin, and I have restarted him back on his beta gustavo. 3. Chronic atrial fibrillation: Patient continues to be in chronic atrial fibrillation, with 100% ventricular paced rhythm. Continue on current dose of metoprolol. I would hold his digoxin until he has a digoxin level drawn this morning. He is on anticoagulation of warfarin. His INR is noted to be subtherapeutic. I would like to hold his warfarin today in case he needs to undergo coronary angiogram. We will decide on pending his repeat laboratory studies reports, will consider bridging him with Lovenox due to a significant CHADS-VASc of at least 4. 4. Hyperlipidemia: Patient noted history of hyperlipidemia, has been statin intolerant in the past, has refused PCSK9 inhibitors in the past. We will continue him on current Zetia. 5. Hypertension: Blood pressure appears to be well controlled, I have resume his home metoprolol and lisinopril dosage. Thank you for this consultation. Further recommendations will come post testing. We will be glad to follow along with you. /[id number]/MODL MTDD
[2018-12-21] MEDS ORDERED: PERFLUTREN LIPID MICROSPHERES 1.1 MG/ML VIAL IV ONE (11:15)
[2018-12-21] MEDS ORDERED: DIAZEPAM 5 MG TAB PO ONE (12:14)
[2018-12-21] MEDS ORDERED: FAMOTIDINE 20 MG TAB PO ONE (12:14)
[2018-12-21] MEDS ORDERED: ASPIRIN EC 325 MG TAB PO ONE (12:14)
[2018-12-21] MEDS ORDERED: diphenhydrAMINE 25 MG CAP PO ONE ×2 (12:14→13:28)
[2018-12-21] MEDS ORDERED: NS 1,000 ML IV SCH (12:15)
--- NOTE | 2018-12-21 13:21 | ECHO ---
[email or web address] [address] [address] Main: [phone] Echocardiography Examination Transthoracic Name: ADONIS BUCK MR#: [id number] Study Date: 12/21/2018 Study Time: 10:33 AM Date of : 1935 Age: 83 year(s) Height: 172.7 cm (68 in.) Weight: 129.28 kg (285 lb.) BSA: 2.38 m2 Gender: Male Examination: Limited Echo with Definity Contrast: 0.250 mg I.V. dose of Definity was administered Image Quality: Technically Difficult Rhythm: Atrial fibrillation Heart Rate: 83 bpm BP: 155 mmHg/84 mmHg Indication: SOB and CP Procedure Staff Referring Physician: Artist Suspect: Nsihi Garay [facility] Reading Physician: Storm Alejandro MD Requesting Provider: Ordering Physician: Maged Vaughn Indication: SOB and CP Measurements Chambers AV/MV Label Value Normal Value Label Value Normal Value LVOT Vmax 0.76 m/s (0.7m/s - 1.1m/s) AV PGmax 5 mmHg LVOTd 2.3 cm (1.9cm - 2.1cm) AV Vmax 1.15 m/s LVDd, 2D 5.2 cm (4.2cm - 5.9cm) CELESTE (Vmax) 2.7 cm2 LVDs, 2D 3.7 cm (2.1cm - 4cm) MV E Vmax 1.07 m/s IVSd, 2D 0.8 cm (0.6cm - 1.1cm) MV E/E' lateral 10.3 LVPWd, 2D 1 cm (0.6cm - 1cm) MV E/E' septal 15.5 (0.45 - 1.25) LVEF, BP 51 % (55% - 70%) MV DT 165 ms LVEF, 2D 54 % (54% - 74%) MV E' septal 0.07 m/s RVDd, 2D 4.1 cm (1.9cm - 3.8cm) MV E' lateral 0.1 m/s TAPSE 2.5 cm MV E/E' mean 12.59 LA Volume, BP 96 ml (18ml - 58ml) MV E' mean 0.08 m/s LADs, 2D 4.7 cm (3cm - 4cm) TV/PV LAESV index, BP 40.3 ml/m2 Label Value Normal Value RA Area 36 cm2 RA Pressure 5 mmHg Additional Vessels RVSP 45 mmHg Label Value Normal Value TR Pmax 40 mmHg AoAsc 3.5 cm TR Vmax 3.16 m/s AoRoot, 2D 3.3 cm (1.4cm - 2.6cm) PV PGmax 4 mmHg Patient: ADONIS BUCK Study Date: 12/21/2018 Page 1 of 3 10:33 AM PV Vmax, Caliper 1.02 m/s (0.6m/s - 0.9m/s) Conclusions The rhythm is atrial fibrillation with 100% ventricular pacing. Normal left ventricular size and systolic function. LVEF estimated at 50-55% and calculated at 50 1% by Valles's. Normal left ventricular free wall thickness. Regional wall motion abnormalities including akinesis of the basal inferior wall and apical severe hypokinesis. Mildly dilated right ventricle with preserved systolic function. Pacemaker leads are noted within the right heart. Mild left atrial enlargement with severe right atrial enlargement. Mild aortic sclerosis. Mild aortic regurgitation. Normal-appearing mitral valve with jnzz-ml-hokiwdsl mitral regurgitation. Normal-appearing tricuspid valve. Moderate tricuspid regurgitation. Normal estimated RVSP at 45 mmHg. Patient had a previous study in March of 2014. That study did not demonstrate any regional wall motion abnormality. Findings Left Ventricle: Left ventricle is normal in size. Mildly reduced systolic left ventricular function. EF evaluated by EF (biplane Valles's). The ejection fraction, measured by Simpsons method, is 51 %. EF range is estimated at 50 % - 55 %. The apical anterior, apical septal, apical inferior, apical lateral and apex left ventricular wall segments are hypokinetic (2). The basal inferior left ventricular segment is akinetic (3). All remaining scored left ventricular wall segments are with no wall motion abnormalities (1). Unable to assess Diastolic Dysfunction due to atrial fibrillation/a flutter. Right Ventricle: Mildly dilated right ventricle. Right ventricular systolic function is normal. There is a pacing/ICD wire present in the right ventricle. Left Atrium: The left atrium is mildly dilated. Right Atrium: The right atrium is severely dilated. Mitral Valve: Mitral valve appears structurally normal. Mild to moderate mitral regurgitation. No mitral valve stenosis. Aortic Valve: Aortic leaflets are structurally normal. Mild aortic regurgitation is present. There is no aortic stenosis. Aortic leaflets exhibit mild calcification. The aortic valve is probably trileaflet. Tricuspid Valve: Tricuspid valve leaflets are structurally normal. Moderate tricuspid regurgitation. Right Ventricular systolic pressure is measured at 45 mmHg. Pulmonary artery pressure is mildly to moderately increased. Pulmonic Valve: Pulmonic valve is poorly visualized. Aorta: The aortic root size in 2D measures 3.3 cm. The aortic root exhibits normal size. The ascending aorta measures 3.5 cm. Ascending aorta is normal in size. Aorta Measurements AoRoot, 2D is 3.3 cm. IVC: The inferior vena cava is normal in size and course. Pericardium: No pericardial effusion. Exam Details Procedure Ordered: Limited Echo with Definity Procedure Status: Routine study Image Quality: Technically Difficult Contrast: 0.250 mg I.V. dose of Definity was administered Intravenous contrast was administered to opacify the left ventricle Contrast Lot#: [id number] Patient: ADONIS BUCK Study Date: 12/21/2018 Page 2 of 3 10:33 AM Facility Location: Cardiac Echo 1 (No Signature Object) Wall Motion Scores Patient: ADONIS BUCK Study Date: 12/21/2018 Page 3 of 3 10:33 AM [id number]
[2018-12-21] MEDS ORDERED: DIAZEPAM 5 MG TAB ONE (13:29)
[2018-12-21] MEDS ORDERED: FAMOTIDINE 20 MG TAB ONE (13:29)
--- NOTE | 2018-12-21 13:29 | ASMTCMCOM ---
CM Note CM Note Notes: Pts case discussed in tx rounds. Pt is a 83 y/o man admitted for chest pain. PT has been ordered and awaiting recommendations. Cards has been consulted. Needs are TBD at this time. CM to follow. Plan: TBD Date Signed: 12/21/2018 01:19 PM Electronically Signed By:GISELLE Herring
[2018-12-21] MEDS ORDERED: fentaNYL 100 MCG/2 ML INJ ONE (14:09)
[2018-12-21] MEDS ORDERED: LIDOCAINE 1% 300 MG/30 ML SDV ONE (14:09)
[2018-12-21] MEDS ORDERED: MIDAZOLAM 2 MG/2 ML VIAL ONE (14:10)
[2018-12-21] MEDS ORDERED: IOPAMIDOL (ISOVUE-370) 150 ML BTL IV ONE ×2 (14:10→15:34)
[2018-12-21] MEDS ORDERED: CLOPIDOGREL BISULFATE 75 MG TAB ONE (14:55)
--- NOTE | 2018-12-21 14:55 | PDPROPOC ---
Sedation Plan of Care Sedation Plan of Care: mental status noted, patient educated of risks, benefits , alternatives, patient can tolerate sedation ASA Classification: ASA 2 Planned drugs: fentanyl, midazolam Mallampati Score: Class 2 Mallampati Reference Image: Patient passed 3-3-2 rule?: Yes
--- NOTE | 2018-12-21 14:55 | PDHPUP ---
History & Physical Update H&P update statement: This history and physical update is based on an assessment of the patient which was completed after admission or registration (within 24 hours), but prior to the surgery/procedure. H&P update: H&P reviewed & patient examined, no change in patient's condition since H&P completed
[2018-12-21] MEDS ORDERED: CLOPIDOGREL BISULFATE 75 MG TAB PO ONE (15:00)
[2018-12-21] MEDS ORDERED: BIVALIRUDIN 250 MG/5 ML VIAL IV ONE ×2 (15:18→15:48)
--- NOTE | 2018-12-21 15:21 | HOSPPROG ---
Hospitalist Progress Note Assessment/Plan: Chest pain - Trops negative x2. ECG V-paced, unchanged from prior. Echo showed hypokinetic and akinetic tucker. - cath today CAD - S/p AZ w/ PCI in 2016. Negative nuc stress and negative cath in 2017. - Continue DAPT, BB, statin - LHC today as above IDDM - cont home basal/bolus insulin - Hold MTF as pt will receive IV contrast for cath AF - S/p PPM, V-paced on admission ECG; on warfarin as an outpatient, INR 1.92 on arrival - warfarin held per cards for cath, likely resume in am Chronic pain - continue home methadone, wellbutrin, gabapentin Hypothyroidism - cont home levothyroxine Diet - NPO Code - Full Ppx - warfarin Dispo - Obs Subjective: Pt feels ok, currently in CVC awaiting cath. Minimal CP currently. Objective: Vital Signs Temp Pulse Resp BP Pulse Ox 36.7 C 72 18 141/92 H 99 12/21/18 11:35 12/21/18 11:35 12/21/18 11:35 12/21/18 11:35 12/21/18 11:35 12/20/18 12/21/18 12/22/18 05:59 05:59 05:59 Output Total 750 Balance -750 PT 21.1 SEC (12.0-15.0) H 12/21/18 04:30 INR 1.92 (0.83-1.16) H 12/21/18 04:30 - Physical Exam Constitutional: no apparent distress Eyes: PERRL Ears, Nose, Mouth, Throat: moist mucous membranes Cardiovascular: regular rate and rhythym Respiratory: no respiratory distress, clear to auscultation Gastrointestinal: normoactive bowel sounds, soft, non-tender abdomen Skin: warm Musculoskeletal: full muscle strength Neurologic: AAOx3 Psychiatric: interacting appropriately ICD10 Worksheet Patient Problems: Problems Problem Status Onset Chest pain Acute Chest pain Acute
[2018-12-21] MEDS ORDERED: NITROGLYCERIN 1,500 MCG/15 ML VIAL MISC ONE (15:46)
--- NOTE | 2018-12-21 17:02 | CPIP ---
[f rep st] INVASIVE CARDIAC PROCEDURE DATE OF PROCEDURE: 12/21/2018 INDICATION FOR PROCEDURE: Unstable angina. PROCEDURE: 1. Nonselective right groin sheathogram. 2. Bilateral selective coronary angiography. 3. Left heart catheterization. 4. Left ventriculogram. 5. Percutaneous coronary intervention of ostial and proximal right coronary artery utilizing Synergy 3.0 x 16 mm drug-eluting stents x2. HISTORY: Patient is an 83-year-old male with history of coronary artery disease with prior proximal LAD stent. Patient was admitted today for unstable angina-like symptoms which were similar to his heart attack years ago. Because of these findings, patient consented for invasive angiography. DESCRIPTION OF PROCEDURE: After informed consent, patient was brought to [facility] where the right groin w as prepped and draped in sterile fashion. Using lidocaine, a short 6-Northern Irish sheath in the right comm on femoral artery was verified angiographically. A JL4 catheter was advanced to the left coronary ar william. Images of the left coronary artery revealed a normal long left main. The left circumflex edilia ry gave off a trifurcate into 3 marginal branches, all of which appeared to be healthy and free of di sease. The AV groove and circumflex appeared to be healthy and free of disease. The LAD had what ap peared to be a napkin ring-like hazy lesion right before the takeoff of a proximal LAD stent, which h ad mild in-stent restenosis. Distal to the stent, there was a 30% lesion in the midportion of the LA D. There appeared to be a significant bridging segment followed by an area of thin vessel which had 50% to 60% disease, but it was a thin vessel and also could be part of the bridging segment. After t hese images were obtained, the JL4 catheter was removed. A JR4 catheter was advanced to the right co ronary artery. Images of the right coronary artery revealed a normal ostial RCA, 20% disease through the mid-RCA. Distal RPDA had diffuse 30% to 40% disease and was a small vessel. RPLS had 30% disea se and was again a small vessel. The JR4 catheter was removed. Over a 0.035 wire, a pigtail cathete r was advanced to the left ventricle. EDP 15 mmHg. Left ventriculogram in the WHITING projection showed EF of 65% with no wall motion abnormalities. There was no pullback gradient between the LV and the aorta. INTERVENTIONAL REPORT: At this time, the patient was administered 600 mg of Plavix p.o. and started on Angiomax bolus and drip. Utilizing an EBU 3.5 guide catheter, the left coronary artery was once a gain engaged. A Choice PT wire was placed down to the distal LAD. Predilatation of the ostial/proxi mal LAD commenced with a 3.0 x 12 balloon. After this was performed, we then proceeded with stenting of this vessel with a 3.0 x 16 Synergy stent was deployed successfully in the ostial to proximal LAD at 18 atmospheres. After this was performed, angiographic images were obtained which showed improve d patency of the stented area, however, there appeared to be some plaque shift from the stented area into the mid to distal portion of the stent. We decided to cover this up with an additional 3.0 x 12 mm Synergy drug-eluting stent. This was deployed at 18 atmospheres and then the balloon was utilize d in overlapped fashion between the 2 stents at 18 atmospheres. After this was performed, angiograph ic images were obtained which did show excellent patency of the stented regions. No evidence of diss ection or perforation. 200 mcg nitroglycerin was administered and images were retaken once again, sh owing the excellent patency of the stented regions. Of note, there did appear to be some narrowing j ust distal to the bridging segment in the mid to distal LAD. However, again, this appeared to be pot entially wire spasm versus being part of the bridging segment itself, and being its distal nature pas t the bridging segment, we decided no further distal intervention would be warranted. Wire was remov ed back. The guide catheter was removed over the 0.035 wire. Right groin was closed with 6-Northern Irish A ngio-Seal. Patient tolerated the procedure well. No complications. IMPRESSION: 1. Successful percutaneous coronary intervention of high-grade ostial and proximal left anterior sj cending disease with 2 Synergy drug-eluting stents. 2. Mild noncritical disease in the right coronary artery. 3. Normal left circumflex artery. 4. Normal ejection fraction. PLAN: The patient will be remaining on aspirin and his Coumadin. Further orders following clinical course. /[id number]/MODL
[2018-12-21] MEDS: METHADONE HCL 5 MG TAB PO SCH (20:16)
[2018-12-21] MEDS: PANTOPRAZOLE SODIUM 40 MG TAB PO SCH (20:16)
[2018-12-21] MEDS: buPROPion SR 150 MG TAB PO SCH (20:16)
[2018-12-21] MEDS ORDERED: INSULIN GLARGINE 100 UNITS/ML UNIT SC SCH (21:00)
[2018-12-21] MEDS ORDERED: GABAPENTIN 300 MG CAP PO SCH (21:00)
--- NOTE | 2018-12-22 04:00 | CPEKG ---
Test Reason : OPEN Blood Pressure : / mmHG Vent. Rate : 080 BPM Atrial Rate : 000 BPM P-R Int : 049 ms QRS Dur : 175 ms QT Int : 420 ms P-R-T Axes : 000 -88 085 degrees QTc Int : 485 ms Afib/flutter and ventricular-paced rhythm Confirmed by Israel Agustin ([id number]) on 12/22/2018 3:59:53 AM Referred By: Israel Agustin Confirmed By:Israel Agustin
[2018-12-22 04:33] LABS: PLATELET COUNT 190 10^3/uL (150-400)
[2018-12-22] MEDS ORDERED: LEVOTHYROXINE 150 MCG TAB PO SCH (06:00)
--- NOTE | 2018-12-22 07:02 | PDCARPN ---
Cardiology Progress Note Chief Complaint: CP Assessment/Plan: Assessment: CP CAD Plan: 12/22/18 06:58 s/p PCI no CP OOB d/c home today continue plavix and coumadin Subjective: doing well Reviewed/Discussed With: multidisciplinary team Time Spent with Patient: greater than 25 minutes Time Spent with Patient: Greater than 25 minutes spent on this patients care, greater than 50% of time spent counseling, educating, and coordinating care regarding the above mentioned plan. Objective: Vital Signs (8 Hrs) Temp Pulse Resp BP Pulse Ox 12/22/18 03:47 36.5 C 80 11 L 134/70 H 95 12/21/18 23:15 70 20 95 Intake/Output (24 Hrs) 12/21/18 12/22/18 12/23/18 05:59 05:59 05:59 Intake Total 200 Output Total 1000 500 Balance -800 -500 Intake: Oral (ml) 200 Output: Urine (ml) 1000 500 Urinal 1000 500 Other: Weight 113.398 kg Number of Stools Toilet 1 Result Diagrams: 12/22/18 04:12 12/22/18 04:12 Cardiac Labs: Cardiac Lab Results (72 Hrs) 12/21/18 09:23 Troponin I < 0.012 - Physical Exam Constitutional: no apparent distress Eyes: PERRL Ears, Nose, Mouth, Throat: moist mucous membranes Cardiovascular: irregularly irregular Peripheral Pulses: 1+: femoral (R), femoral (L) Respiratory: clear to auscultate bilat Gastrointestinal: normoactive bowel sounds Genitourinary: no suprapubic tenderness Skin: no rashes Musculoskeletal: no muscular tenderness Neurologic: AAOx3 Psychiatric: cooperative ICD10 Worksheet Patient Problems: Problems Problem Status Onset Chest pain Acute Chest pain Acute
--- NOTE | 2018-12-22 07:24 | GDS ---
[f rep st] DISCHARGE SUMMARY DISCHARGE DIAGNOSIS: Coronary artery disease. Briefly, this is an 83-year-old male with history of coronary artery disease, presented with unstable angina, underwent cardiac catheterization which showed dissection to the proximal LAD kanchan nt. The patient underwent successful DARLIN placement to his proximal LAD x2. Postprocedure, the patie nt has done very well. He is denying any chest pain or shortness of breath overnight. Currently, th e patient has been ambulating without problems. Groin is soft. Patient's laboratory values within n ormal limits. Patient will discharged home this morning with his home medications including Coumadin , as well as Plavix. He will follow up in the office in 1 week's time. Continue his other home medi cations. /[id number]/MODL
[2018-12-22] MEDS ORDERED: GABAPENTIN 300 MG CAP PO SCH (09:00)
[2018-12-22] MEDS ORDERED: TAMSULOSIN HCL 0.4 MG CAP PO SCH (09:00)
[2018-12-22] MEDS ORDERED: DULoxetine 30 MG CAP PO SCH (09:00)
[2018-12-22] MEDS ORDERED: BETAMETHASONE 30 MG/5 ML VIAL IM ONE (09:00)
[2018-12-22] MEDS ORDERED: CLOPIDOGREL BISULFATE 75 MG TAB PO SCH (09:00)
[2018-12-22] MEDS ORDERED: DIGOXIN 125 MCG TAB PO SCH (09:00)
--- NOTE | 2018-12-22 09:09 | CPEKG ---
Test Reason : OPEN Blood Pressure : / mmHG Vent. Rate : 067 BPM Atrial Rate : 000 BPM P-R Int : 180 ms QRS Dur : 169 ms QT Int : 434 ms P-R-T Axes : 000 -83 082 degrees QTc Int : 458 ms Ventricular-paced rhythm Confirmed by Erick Pino ([id number]) on 12/22/2018 9:09:29 AM Referred By: Francisco Rothman Confirmed By:Erick Pino
[2018-12-22] MEDS ORDERED: LIDOCAINE 1% 2 ML INJ IV ONE (09:15)
--- NOTE | 2018-12-22 09:17 | ASMTLACE ---
LACE Length of stay for Answers: 1 day current admission Acuity / Level of Answers: No Care: Did the patient have an inpatient admission? Comorbidities - select Answers: Coronary Artery Disease all that apply Diabetes (uncontrolled or controlled) Opioid dependence / Chronic pain Previous myocardial infarction Other Notes: HTN # of Emergency department Answers: 1-2 visits in the last 6 months Score: 11 Date Signed: 12/22/2018 09:16 AM Electronically Signed By:GISELLE Herring
--- NOTE | 2018-12-22 09:18 | ASMTCMCOM ---
CM Note CM Note Notes: Pts case discussed w/ Maged, NOHEMI. Pt is being d/c'd today. CM spoke to Carlos Eduardo, physical therapist. Carlos Eduardo is recommending SNF. CM met w/ pt for dispo planning. Pt is not interested in SNF or HC at this time. Pt reports that he lives w/ his and she will come to pick him up. CM available for changes. Plan: Independent Date Signed: 12/22/2018 09:18 AM Electronically Signed By:GISELLE Herring
[2018-12-22] MEDS: buPROPion SR 150 MG TAB PO SCH (09:37)
[2018-12-22] MEDS: EZETIMIBE 10 MG TAB PO SCH (09:38)
[2018-12-22] MEDS: METOPROLOL SUCCINATE XR 25 MG TAB PO SCH (09:38)
[2018-12-22] MEDS: ASPIRIN EC 81 MG TAB PO SCH (09:39)
[2018-12-22] MEDS: LISINOPRIL 5 MG TAB PO SCH (09:39)
[2018-12-22] MEDS: PANTOPRAZOLE SODIUM 40 MG TAB PO SCH (09:39)
[2018-12-22] MEDS: METHADONE HCL 5 MG TAB PO SCH (09:42)
[2018-12-22] MEDS: INSULIN LISPRO 100 UNIT/ML SC SCH ×4 (09:43→14:40)
--- NOTE | 2018-12-22 09:48 | PDDCSUM ---
Discharge Summary Discharge Summary: DISCHARGE DIAGNOSES: * Chest pain, suspect costochondritis as cause * Ruled out for myocardial infarction * Progress in of coronary artery disease with high-grade ostial and proximal LAD stenoses mild in stents restenoses of proximal LAD, mild right coronary disease; 2 drug-eluting stents placed at the LAD ostium and proximal with good flow no complications CONSULTANTS: Dr Chawla PROCEDURES: Coronary angiography, placement of 2 stents and proximal LAD Steroid injection at left 3rd and 4th costochondral junction Echocardiogram HOSPITAL COURSE SUMMARY: PENDING TEST RESULTS: None MEDICATION CHANGES: Addition of Plavix FOLLOW-UP PLAN: In Cardiology Clinic next week He is given instructions for preventive care for his right inguinal angiography access site Greater than 35 minutes bedside and care coordination time today
[2018-12-22 12:24] VITALS: BP 128/67
--- NOTE | 2018-12-23 19:33 | CPEKG ---
Test Reason : OPEN Blood Pressure : / mmHG Vent. Rate : 078 BPM Atrial Rate : 000 BPM P-R Int : 054 ms QRS Dur : 165 ms QT Int : 425 ms P-R-T Axes : 000 -86 075 degrees QTc Int : 485 ms ventricular-paced rhythm underlying atrial fibrillation Confirmed by Erick Pino ([id number]) on 12/23/2018 7:32:22 PM Referred By: Francisco Rothman Confirmed By:Erick Pino
== END 2018-12-22 16:10 | disposition home or self-care (01) ==
LOC: EDUNIT# → F2W 05:59
PROVIDERS: ADMIT Student in an Organized Health Care Education/Training Program; ATTEND Internal Medicine
DX: I25.110 Atherosclerotic heart disease of native coronary artery with unstable angina pectoris (principal); T82.855A Stenosis of coronary artery stent, initial encounter; I10 Essential (primary) hypertension; I48.2 Chronic atrial fibrillation; I49.5 Sick sinus syndrome; E78.5 Hyperlipidemia, unspecified; G47.33 Obstructive sleep apnea (adult) (pediatric); E11.9 Type 2 diabetes mellitus without complications; I77.9 Disorder of arteries and arterioles, unspecified; K21.9 Gastro-esophageal reflux disease without esophagitis; M54.9 Dorsalgia, unspecified; I25.2 Old myocardial infarction; Z79.01 Long term (current) use of anticoagulants
CPT/HCPCS: 71046; 93005; 93458; 96372; 97116; 97162; 97530; 99285; C1725; C1760; C1769; C1874; C1887; C8929; C9600; G0378; J0583; J0702; J1644; J1815; J2250; J3010; Q9957; Q9967; 84484-ER